=== PATIENT | female | born 1945 | race Caucasian/White ===

== ENCOUNTER → 2017-05-26 | Outpatient (CLI) | payer OTHER ==
--- NOTE | 2017-05-26 14:33 | MAMMOGRAPHY REPORT ---
BILATERAL DIGITAL SCREENING MAMMOGRAM TOMOSYNTHESIS WITH CAD: 05/26/2017 CLINICAL HISTORY: Routine screening. Patient has no complaints. TECHNIQUE: Breast tomosynthesis in addition to standard 2D mammography was performed. Current study was also evaluated with a Computer Aided Detection (CAD) system. COMPARISON: Comparison is made to exams dated: 05/21/2015 mammogram, 05/23/2016 mammogram, 4 mammogram, 05/17/2013 mammogram, 05/14/2012 mammogram, and 05/13/2011 mammogram - [facility]. BREAST COMPOSITION: The tissue of both breasts is heterogeneously dense, which may obscure small mas ses. FINDINGS: No suspicious masses, calcifications, or areas of architectural distortion are noted in ei ther breast. There has been no significant interval change compared to prior exams. IMPRESSION: ACR BI-RADS CATEGORY 1: NEGATIVE There is no mammographic evidence of malignancy. A 1 year screening mammogram is recommended. The pa tient will receive written notification of the results. Approximately 10% of breast cancers are not detected with mammography. A negative mammographic report should not delay biopsy if a clinically suggestive mass is present. Vidhi Wei M.D. ah/:05/26/2017 07:39:32 Special Programs Director: Niurka OTTO(Yamileth)(M), [facility] letter sent: Normal 1/2 BI-RADS Code: ACR BI-RADS Category 1: Negative
== END | disposition home or self-care (01) ==
LOC: C.MAMM 07:12
PROVIDERS: ATTEND Physician Assistant
DX: Z12.31 Encounter for screening mammogram for malignant neoplasm of breast (principal)

== ENCOUNTER 2025-05-23 09:05 | Inpatient (IN) ==
--- NOTE | 2025-05-23 09:10 | Emergency Department Note ---
Impression & Plan Neutropenic fever, Pancytopenia, Cough ED Provider Note NAME: JOSEPH ROMERO AGE: 80 SEX: F : 1945 ARRIVES VIA: Ambulance INFORMANT: Patient, ED PROVIDER(S): Joe Philippe MD CHIEF COMPLAINT: Outpatient referral, fever, hypoxia. MEDICAL DECISION MAKING: Patient presents due to concern for fever in the setting of cancer. Sepsis protocols initiated patient did receive IV fluids as well as empiric IV cefepime. Patient's blood work shows a white count of 2.3. Patient's absolute neutrophil count is 880. Kidney function unremarkable. Lactate normal. Urinalysis does not show evidence of obvious infection. BioFire negative. Chest x-ray does not show obvious findings. I did discuss the patient's findings with the patient as well as with the patient's son. They are comfortable with plan of care and the patient was admitted to the medicine service.of note the patient did have improvement in blood pressure with fluid administration. Patient does not have an oxygen requirement here in the department. I did speak with GEOFF Coats and the patient was admitted by Dr. Sood. Discussion w/ other healthcare providers: GEOFF Coats and Dr. Sood inpatient medicine service Prior /Outside records reviewed: None Differential diagnosis: Infection, dehydration, metabolic abnormality, hypo/hyperglycemia, electrolyte imbalance, anemia, UTI, pneumonia, thyroid dysfunction among others were considered. Diagnostics, as interpreted by me: ECG: Sinus with PACs, rate of 69, normal intervals, normal axis no ST elevations. Cardiac monitoring: An order was placed for continuous cardiac monitoring. The monitor shows a rate of 75 with sinus rhythm. Patient was placed on pulse oximetry Medical decision rules: None Imaging studies: I informally interpreted the patient's chest x-ray without obvious pneumonia with formal report to follow. HPI: Patient presents due to concern for weakness and fatigue. F patient denies any change in symptoms from yesterday. Patient still does have some congestion and dry nonproductive cough. The patient reports that she drank well up to 2 L last night and ate well. No reported vomiting or diarrhea. No falls or trauma. Report from clinic was that the patient was seen in the clinic and that this morning she could barely walk temperature of 101 with O2 sat of 92% on room air. Also noted to be 95/61 and thus was sent back to the emergency department today. PAST MEDICAL HISTORY: See Below PAST SURGICAL HISTORY: See Below SOCIAL HISTORY: See Below HOME MEDICATIONS: See Below ALLERGIES: See Below VITALS: See Below PHYSICAL EXAMINATION: GENERAL: NAD, non-toxic. Wearing glasses. EYE EXAM: Normal conjunctiva. PERRL, no anisocoria and EOM's grossly intact w/o pain. OROPHARYNX: Moist mucus membranes, grossly normal dentition. NECK: Trachea midline, no stridor. LUNGS: Clear to auscultation. Normal chest wall mechanics. HEART: NSR, no MRG. ABDOMEN: Abdomen soft, non-tender, no masses, no rebound or guarding. BACK: No CVA TTP. SKIN: No rashes and no bruising. UPPER EXTREMITIES: Upper extremities are grossly normal. LOWER EXTREMITIES: Grossly normal, no edema. NEURO EXAM: Awake and alert, follows commands, no obvious facial asymmetry, normal speech, moves all 4 extremities. 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 MV leaflet; severe MR; MR jet is eccentric and anterior directed Hypertension Surgical History History of mitral valve repair History of hysterectomy History of colonoscopy History of tooth extraction History of adenoidectomy History of tonsillectomy Family History Mother Breast cancer Social History Smoking Status: Never smoker Second Hand Exposure: No; Do You Dip or Chew Tobacco: No; Hx Alcohol Use: No Hx Substance Use: No Preferred Language: Portuguese Communication Ability: Effective Chief Deputy Sheriff Required: No Beliefs That Will Affect Care: None Current Living Situation: Family Current Living Situation Comment: lives with grandson current occupation: Retired Other Information That Helps Us Care for You: No Feels Safe at Home: Yes Safety Concerns: Feels Safe At This Time Assistive Devices: Cane Allergies Allergies Allergy/AdvReac Type Severity Reaction Status Date / Time No Known Allergies Allergy Verified 07/12/24 14:49 Home Meds Home Medications Medication Instructions Recorded Confirmed levothyroxine 100 mcg tablet 75 mcg PO QAM 10/10/22 05/23/25 acyclovir 400 mg tablet 400 mg PO BID 04/03/23 05/23/25 cefpodoxime 200 mg tablet 200 mg PO BID 04/03/23 05/23/25 lidocaine-prilocaine 2.5 %-2.5 % 2.5 applic topical DIRECTED PRN 04/03/23 05/23/25 topical cream Itching metoprolol succinate 25 mg 25 mg PO BID 04/03/23 05/23/25 tablet,extended release 24 hr ondansetron 4 mg disintegrating 4 mg PO Q6H PRN Nausea 04/03/23 05/23/25 tablet posaconazole 100 mg tablet,delayed 300 mg PO 1XD 04/03/23 05/23/25 release potassium chloride 20 mEq 20 meq PO BID 06/19/23 05/23/25 tablet,extended release spironolactone 25 mg tablet 25 mg PO DAILY 06/19/23 05/23/25 prochlorperazine maleate 10 mg 10 mg PO Q6H PRN Nausea 05/17/24 05/23/25 tablet (Compazine) ropinirole 3 mg tablet 3 mg PO HS 05/17/24 05/23/25 torsemide 10 mg tablet 10 mg PO MOWEFR 05/17/24 05/23/25 Results & Data (ED) Vital Signs Vital Signs - 24 hr 05/23/25 09:45 05/23/25 10:01 05/23/25 10:15 Pulse Rate 66 65 65 Pulse Rate [Apical] Pulse Rate from SpO2 Sensor Pulse Rhythm [Apical] Pulse Strength [Apical] Respiratory Rate 27 H 22 23 Respiratory Effort / Characteristics Respiratory Depth Respiratory Pattern Blood Pressure 118/58 L 107/50 L 105/55 L Blood Pressure [Right Arm] Blood Pressure Mean 77 66 70 Blood Pressure Mean [Right Arm] Blood Pressure Position [Right Arm] Pulse Oximetry 94 96 95 Oxygen Delivery Method Room Air Room Air Room Air 05/23/25 10:30 05/23/25 10:30 05/23/25 10:30 Pulse Rate Pulse Rate [Apical] Pulse Rate from SpO2 Sensor Pulse Rhythm [Apical] Pulse Strength [Apical] Respiratory Rate Respiratory Effort / Characteristics Respiratory Depth Respiratory Pattern Blood Pressure 102/57 L 102/57 L 102/57 L Blood Pressure [Right Arm] Blood Pressure Mean 66 66 66 Blood Pressure Mean [Right Arm] Blood Pressure Position [Right Arm] Pulse Oximetry Oxygen Delivery Method 05/23/25 10:30 05/23/25 10:42 05/23/25 10:42 Pulse Rate 65 64 Pulse Rate [Apical] 64 Pulse Rate from SpO2 Sensor 65 64 Pulse Rhythm [Apical] Regular Pulse Strength [Apical] Respiratory Rate 24 16 25 H Respiratory Effort / Characteristics Non-Labored Spontaneous Respiratory Depth Normal Respiratory Pattern Blood Pressure Blood Pressure [Right Arm] 104/55 L Blood Pressure Mean Blood Pressure Mean [Right Arm] 71 Blood Pressure Position [Right Arm] Pulse Oximetry 96 95 96 Oxygen Delivery Method Room Air 05/23/25 10:43 05/23/25 10:43 05/23/25 11:15 Pulse Rate Pulse Rate [Apical] 62 Pulse Rate from SpO2 Sensor Pulse Rhythm [Apical] Regular Pulse Strength [Apical] Normal Respiratory Rate 18 Respiratory Effort / Characteristics Non-Labored Spontaneous Respiratory Depth Normal Respiratory Pattern Regular Blood Pressure 104/55 L 104/55 L Blood Pressure [Right Arm] 92/53 L Blood Pressure Mean 70 70 Blood Pressure Mean [Right Arm] 66 Blood Pressure Position [Right Arm] Lying Pulse Oximetry 94 Oxygen Delivery Method Room Air Home Medications Current Medication List: was personally reviewed by me Laboratory Data Attestation: I reviewed the patient's lab results. 05/24/25 06:17 05/24/25 06:17 Lab Results 05/23/25 05/23/25 05/23/25 Range/Units 09:14 09:30 10:14 WBC 2.32 L (4.8-10.8) K/ul RBC 3.44 L (4.20-5.40) M/uL Hgb 8.3 L (12.0-16.0) g/dL Hct 26.4 L (37.0-47.0) % MCV 76.7 L (80.0-100.0) fL MCH 24.1 L (25.0-34.0) pg MCHC 31.4 L (32.0-36.0) g/dL RDW Std Deviation 84.5 H (36.4-46.3) fL RDW Coeff of Paulina 30.5 H (11.5-14.5) % Plt Count 25 L* (130-400) K/uL Absolute Nucleated RBC 0.03 (0.00-0.12) K/uL Nucleated RBC % (auto) 1.3 % Neutrophils % (Manual) 38 % Lymphocytes % (Manual) 19 % Monocytes % (Manual) 28 % Basophils % (Manual) 1 % Blast Cells % (Manual) 14 % Neutrophils # (Manual) 0.88 L (1.40-6.50) K/uL Total Absolute Neuts 0.88 L* (1.4-6.5) K/uL Lymphocytes # (Manual) 0.44 L (1.2-3.4) K/uL Total Abs Lymphocytes 0.44 L (1.2-3.4) K/uL Monocytes # (Manual) 0.65 H (0.11-0.59) K/uL Basophils # (Manual) 0.02 (0-0.2) K/uL Blast Cells # (Man) 0.32 H (0-0) K/uL Toxic Vacuolation 2+ Giant Platelets 1+ Polychromasia 1+ Anisocytosis Present Tear Drop Cells 1+ Ovalocytes 1+ Acanthocytes (Spur) 1+ VBG pH 7.38 (7.36-7.41) VBG pCO2 37 L (38-50) mmHg VBG pO2 28 mmHg VBG HCO3 22 mmol/L VBG O2 Saturation < 60.0 % VBG Base Excess -2.8 mEq/L Sodium 135 L (136-145) mmol/L Potassium 5.1 (3.5-5.1) mmol/L Chloride 106 (98-107) mmol/L Carbon Dioxide 24 (21-32) mmol/L Anion Gap 5 (3-11) BUN 23 (6-23) mg/dl Creatinine 1.05 (0.6-1.2) mg/dl Est Cr Clr Drug Dosing 36.3 ml/min eGFR 53.38 BUN/Creatinine Ratio 21.9 H (10-20) Glucose 120 H (70-99(Fasting)) mg/dl Lactate 1.6 (0.4-2.0) mmol/L Calcium 8.8 (8.6-10.3) mg/dl Magnesium 2.2 (1.7-2.4) mg/dl Total Bilirubin 0.9 (0.2-1.0) mg/dl Direct Bilirubin TNP TNP AST 39 (13-39) U/L ALT 33 (7-52) U/L Alkaline Phosphatase 58 (34-104) U/L Troponin I High Sens 11.2 (0-14) pg/ml Total Protein 5.9 L (6.0-8.3) gm/dl Albumin 3.5 (3.4-5.0) gm/dl Procalcitonin 0.23 (0-0.5) ng/ml Urine Color Dark Yellow Urine Appearance Clear (Clear) Urine pH 5.5 (4.5-7.5) Ur Specific [place] 1.019 (1.000-1.030) Urine Protein 1+ H (Negative) Urine Glucose (UA) Negative (Negative) Urine Ketones Negative (Negative) Urine Blood Negative (Negative) Urine Nitrite Negative (Negative) Urine Bilirubin Negative (Negative) Urine Urobilinogen Negative (Negative) Ur Leukocyte Esterase Negative (Negative) Urine WBC (Auto) 0-5 (0-5) /hpf Urine RBC (Auto) 0-2 (0-2) /hpf U Hyaline Cast (Auto) 3-5 H (0-2) /lpf U Epithel Cells (Auto) 0-2 (0-2) /hpf Urine Bacteria (Auto) None Seen (None Seen) Urine Comment Nasal Screen MRSA (PCR) Negative (Negative) Adenovirus (PCR) Not Detected (NotDetected) B. pertussis DNA (PCR) Not Detected (NotDetected) B.parapertussis DNA PCR Not Detected (NotDetected) C. pneumoniae DNA (PCR) Not Detected (NotDetected) Coronavirus OC43 (PCR) Not Detected (NotDetected) Coronavirus HKU1 (PCR) Not Detected (NotDetected) Coronavirus 229E (PCR) Not Detected (NotDetected) SARS-CoV-2 (PCR) Not Detected (NotDetected) Coronavirus NL63 (PCR) Not Detected (NotDetected) Enterobacterales (PCR) DETECTED A (NotDetected) Human Metapneumovir PCR Not Detected (NotDetected) Influenza Type A (PCR) Not Detected (NotDetected) Influenza Type B (PCR) Not Detected (NotDetected) M. pneumoniae (PCR) Not Detected (NotDetected) Parainfluenza 1 (PCR) Not Detected (NotDetected) Parainfluenza 2 (PCR) Not Detected (NotDetected) Parainfluenza 3 (PCR) Not Detected (NotDetected) Parainfluenza 4 (PCR) Not Detected (NotDetected) RSV (PCR) Not Detected (NotDetected) Entero/Rhino (PCR) Not Detected (NotDetected) blaIMP Car res Gene PCR Not Detected (NotDetected) KPC-Carbap Res Gene PCR Not Detected (NotDetected) blaNDM Car Res Gene PCR Not Detected (NotDetected) OXA-48 Carbapenem Resis Gene (PCR) Not Detected (NotDetected) blaVIM Car Res Gene PCR Not Detected (NotDetected) CTX-M Gene Resistance (PCR) Not Detected (NotDetected) Bld Cult ID Panel PCR See PCR Comment (NotDetected) 05/23/25 Range/Units 11:05 WBC (4.8-10.8) K/ul RBC (4.20-5.40) M/uL Hgb (12.0-16.0) g/dL Hct (37.0-47.0) % MCV (80.0-100.0) fL MCH (25.0-34.0) pg MCHC (32.0-36.0) g/dL RDW Std Deviation (36.4-46.3) fL RDW Coeff of Paulina (11.5-14.5) % Plt Count (130-400) K/uL Absolute Nucleated RBC (0.00-0.12) K/uL Nucleated RBC % (auto) % Neutrophils % (Manual) % Lymphocytes % (Manual) % Monocytes % (Manual) % Basophils % (Manual) % Blast Cells % (Manual) % Neutrophils # (Manual) (1.40-6.50) K/uL Total Absolute Neuts (1.4-6.5) K/uL Lymphocytes # (Manual) (1.2-3.4) K/uL Total Abs Lymphocytes (1.2-3.4) K/uL Monocytes # (Manual) (0.11-0.59) K/uL Basophils # (Manual) (0-0.2) K/uL Blast Cells # (Man) (0-0) K/uL Toxic Vacuolation Giant Platelets Polychromasia Anisocytosis Tear Drop Cells Ovalocytes Acanthocytes (Spur) VBG pH (7.36-7.41) VBG pCO2 (38-50) mmHg VBG pO2 mmHg VBG HCO3 mmol/L VBG O2 Saturation % VBG Base Excess mEq/L Sodium (136-145) mmol/L Potassium (3.5-5.1) mmol/L Chloride (98-107) mmol/L Carbon Dioxide (21-32) mmol/L Anion Gap (3-11) BUN (6-23) mg/dl Creatinine (0.6-1.2) mg/dl Est Cr Clr Drug Dosing ml/min eGFR BUN/Creatinine Ratio (10-20) Glucose (70-99(Fasting)) mg/dl Lactate (0.4-2.0) mmol/L Calcium (8.6-10.3) mg/dl Magnesium (1.7-2.4) mg/dl Total Bilirubin (0.2-1.0) mg/dl Direct Bilirubin 0.3 H AST (13-39) U/L ALT (7-52) U/L Alkaline Phosphatase (34-104) U/L Troponin I High Sens (0-14) pg/ml Total Protein (6.0-8.3) gm/dl Albumin (3.4-5.0) gm/dl Procalcitonin (0-0.5) ng/ml Urine Color Urine Appearance (Clear) Urine pH (4.5-7.5) Ur Specific [place] (1.000-1.030) Urine Protein (Negative) Urine Glucose (UA) (Negative) Urine Ketones (Negative) Urine Blood (Negative) Urine Nitrite (Negative) Urine Bilirubin (Negative) Urine Urobilinogen (Negative) Ur Leukocyte Esterase (Negative) Urine WBC (Auto) (0-5) /hpf Urine RBC (Auto) (0-2) /hpf U Hyaline Cast (Auto) (0-2) /lpf U Epithel Cells (Auto) (0-2) /hpf Urine Bacteria (Auto) (None Seen) Urine Comment Nasal Screen MRSA (PCR) (Negative) Adenovirus (PCR) (NotDetected) B. pertussis DNA (PCR) (NotDetected) B.parapertussis DNA PCR (NotDetected) C. pneumoniae DNA (PCR) (NotDetected) Coronavirus OC43 (PCR) (NotDetected) Coronavirus HKU1 (PCR) (NotDetected) Coronavirus 229E (PCR) (NotDetected) SARS-CoV-2 (PCR) (NotDetected) Coronavirus NL63 (PCR) (NotDetected) Enterobacterales (PCR) (NotDetected) Human Metapneumovir PCR (NotDetected) Influenza Type A (PCR) (NotDetected) Influenza Type B (PCR) (NotDetected) M. pneumoniae (PCR) (NotDetected) Parainfluenza 1 (PCR) (NotDetected) Parainfluenza 2 (PCR) (NotDetected) Parainfluenza 3 (PCR) (NotDetected) Parainfluenza 4 (PCR) (NotDetected) RSV (PCR) (NotDetected) Entero/Rhino (PCR) (NotDetected) blaIMP Car res Gene PCR (NotDetected) KPC-Carbap Res Gene PCR (NotDetected) blaNDM Car Res Gene PCR (NotDetected) OXA-48 Carbapenem Resis Gene (PCR) (NotDetected) blaVIM Car Res Gene PCR (NotDetected) CTX-M Gene Resistance (PCR) (NotDetected) Bld Cult ID Panel PCR (NotDetected) Administered Medications Acyclovir (Acyclovir 400 Mg Tab) 400 mg PO BID DONOVAN Stop: 06/22/25 20:59 Last Admin: 05/24/25 08:45 Dose: 400 mg Documented By: rhoda Admin: 05/23/25 20:45 Dose: 400 mg Documented By: AXEL Cefepime HCl (Maxipime 2000mg) 2,000 mg in 20 mls @ 5 mls/min IV Q12H DONOVAN; Protocol Stop: 05/25/25 20:59 Last Admin: 05/24/25 09:35 Dose: 5 mls/min Documented By: rhoda Admin: 05/23/25 20:45 Dose: 5 mls/min Documented By: AXEL Sodium Chloride (Nss) 1,000 mls @ 75 mls/hr IV .[id number] ONE Stop: 05/24/25 11:21 Last Admin: 05/23/25 22:13 Dose: 75 mls/hr Documented By: AXEL Levothyroxine Sodium (Levothyroxine Sodium 75 Mcg Tablet) 75 mcg PO DAILYBB DONOVAN Stop: 06/23/25 06:29 Last Admin: 05/24/25 05:09 Dose: 75 mcg Documented By: AXEL Metoprolol Succinate (Metoprolol Succ 25mg Ext Rel Tab) 25 mg PO BID DONOVAN Stop: 06/22/25 20:59 Last Admin: 05/24/25 08:46 Dose: 25 mg Documented By: rhoda Admin: 05/23/25 20:46 Dose: Not Given Documented By: AXEL Posaconazole (Posaconazole [address] Tab) 300 mg PO DAILY DONOVAN Stop: 06/23/25 08:59 Last Admin: 05/24/25 09:12 Dose: 300 mg Documented By: rhoda Ropinirole HCl (Ropinirole Hcl 1 Mg Tablet) 3 mg PO HS DONOVAN Stop: 06/22/25 20:59 Last Admin: 05/23/25 20:46 Dose: 3 mg Documented By: AXEL Discontinued Medications Sodium Chloride (Nss) 1,000 mls @ 999 mls/hr IV .Q1H1M DONOVAN Stop: 05/23/25 10:15 Last Infusion: 05/23/25 10:45 Dose: Infused Documented By: Admin: 05/23/25 09:38 Dose: 999 mls/hr Documented By: NEENA Cefepime HCl (Maxipime 2000mg) 2,000 mg in 20 mls @ 5 mls/min IV NOW STA; Protocol Stop: 05/23/25 09:13 Last Admin: 05/23/25 09:37 Dose: 5 mls/min Documented By: NEENA Acetaminophen (Ofirmev) 1,000 mg in 100 mls @ 400 mls/hr IV NOW STA Stop: 05/23/25 09:25 Last Infusion: 05/23/25 10:45 Dose: Infused Documented By: Admin: 05/23/25 09:38 Dose: 400 mls/hr Documented By: NEENA Sodium Chloride (Nss) 1,000 mls @ 100 mls/hr IV .Q10H DONOVAN Stop: 05/24/25 09:44 Last Infusion: 05/23/25 22:14 Dose: Infused Documented By: Admin: 05/23/25 15:31 Dose: 100 mls/hr Documented By: GUS Miscellaneous (Order Awaiting Action [(Posaconazole 100 Mg Tablet,Delayed Release (Dr/Ec)]) 1 each N/A QS DONOVAN Stop: 06/22/25 15:59 Last Admin: 05/23/25 15:37 Dose: 1 each Documented By: GUS Imaging Data Radiologist's Impression: Chest X-Ray 05/23/25 09:10 XR chest 1V portable CLINICAL HISTORY: Sepsis COMPARISON STUDY: 05/22/2025 FINDINGS: Stable cardiac valve repair. Stable right chest port. Stable cardiomegaly without pulmonary vascular congestion. No consolidation or pleural effusion seen. No pneumothorax. IMPRESSION: No acute findings. ACT 112: Negative or not required by law. Electronically signed by: Patrice Monzon M.D. 05/23/2025 9:54 AM Discharge Plan Visit Data Chief Complaint: Illness Stated Complaint: HYPOXIA, HYPOTENSION ED Provider: Joe Philippe Discharge Problem: Neutropenic fever, Pancytopenia, Cough Patient Disposition: Admitted As Inpatient Condition: Good Discharge Instructions Interventions: ED Discharge Assessment Last Done: 05/23/25 13:30 Discharge Problem: Cough Qualifiers: Cough type: acute Qualified Code(s): R05.1 - Acute cough
[2025-05-23] MEDS: CEFEPIME 2000MG 2,000 MG/20 ML SYR IV STA (09:37)
[2025-05-23] MEDS: SODIUM CHLORIDE 0.9% 1,000 ML IV SCH ×2 (09:38→15:31)
[2025-05-23] MEDS: ACETAMINOPHEN 1,000 MG/100 ML VIAL IV STA (09:38)
[2025-05-23 09:46] LABS: Hematocrit (blood only) 26.4 % (37.0-47.0); Hemoglobin 8.3 g/dL (12.0-16.0); Mean Corpuscular Hemoglobin 24.1 pg (25.0-34.0); Mean Corpuscular Volume 76.7 fL (80.0-100.0); Platelet Count 25 K/uL (130-400); RDW Standard Deviation 84.5 fL (36.4-46.3); Red Blood Count 3.44 M/uL (4.20-5.40); White Blood Count 2.32 K/ul (4.8-10.8)
--- NOTE | 2025-05-23 09:55 | XRay Report ---
XR chest 1V portable CLINICAL HISTORY: Sepsis COMPARISON STUDY: 05/22/2025 FINDINGS: Stable cardiac valve repair. Stable right chest port. Stable cardiomegaly without pulmonary vascular congestion. No consolidation or pleural effusion seen. No pneumothorax. IMPRESSION: No acute findings. ACT 112: Negative or not required by law. Electronically signed by: Patrice Monzon M.D. 05/23/2025 9:54 AM
[2025-05-23 09:56] LABS: Appearance Urine Clear (Clear); Bacteria Urine Automated None Seen (None Seen); Epithelial Cell Urine Auto 0-2 /hpf (0-2); Glucose Urine UA Negative (Negative); RBC Urine Automated 0-2 /hpf (0-2); WBC Urine Automated 0-5 /hpf (0-5)
[2025-05-23 10:03] LABS: Alanine Aminotransferase 33 U/L (7-52); Albumin Level 3.5 gm/dl (3.4-5.0); Alkaline Phosphatase 58 U/L (34-104); Anion Gap 5 (3-11); Bilirubin,Total 0.9 mg/dl (0.2-1.0); Blood Urea Nitrogen 23 mg/dl (6-23); Calcium 8.8 mg/dl (8.6-10.3); Carbon Dioxide 24 mmol/L (21-32); Chloride 106 mmol/L (98-107); Creatinine Clr Calc Pharmacy 36.3 ml/min; Glucose 120 mg/dl (70-99(Fasting)); Magnesium 2.2 mg/dl (1.7-2.4); Potassium 5.1 mmol/L (3.5-5.1); Sodium 135 mmol/L (136-145); Total Protein 5.9 gm/dl (6.0-8.3)
[2025-05-23 10:20] LABS: Base Excess VBG -2.8 mEq/L; HCO3 VBG 22 mmol/L; Oxygen Saturation VBG < 60.0 %; PCO2 VBG 37 mmHg (38-50); PO2 VBG 28 mmHg; pH VBG 7.38 (7.36-7.41)
--- NOTE | 2025-05-23 10:38 | History & Physical Report ---
Date of Service May 23, 2025 Assessment & Plan (1) Neutropenic fever: (2) Pancytopenia: (3) Acute myeloid leukemia: (4) Chronic diastolic heart failure: (5) Atrial fibrillation: (6) History of mitral valve repair: (7) Restless leg syndrome: (8) Hypothyroidism: Plan 80 year old female with PMH significant for hypothyroidism, dyslipidemia, hypertension, atrial fibrillation, nonobstructive CAD, chronic diastolic CHF, vitamin B12 deficiency, CKD IIIa, RLS, history of mitral valve prolapse s/p MVR (2022), acute myeloid leukemia, myelodysplastic syndrome, and pancytopenia who presents to the ED on 05/23/2025 as a referral from the office of Dr. Barnett with [facility]. Patient was seen in the ED yesterday for weakness, cough, congestion, and hallucinations. Symptoms improved after IV fluid administration and patient was discharged with plan for close follow up with Dr. Barnett today. At her appointment today, patient was febrile to 38.5 with O2 sat of 82% on room air and BP 95/61 and was therefore referred to the ED for evaluation. Neutropenic fever Pancytopenia Patient presenting from office of Dr. Barnett with fever 38.5, O2 sat 82% on room air, BP 95/61 In the ED, patient was afebrile, O2 sat 93% on room air, normotensive initially Labs revealed pancytopenia with WBC 2.32, RBC 3.44, Plt 25 ANC 0.88 indicating moderate neutropenia Biofire negative, CXR negative, UA unremarkable, negative lactate and procalcitonin Plan: Follow blood cultures from yesterday and today Continue IV cefepime started in ED Neutropenic precautions Monitor H&H q12hr and transfuse if Hgb <7.0 or symptomatic Supportive care for fever and dry cough including tylenol and tessalon perles PRN ID consult for neutropenic fever in setting of suppressive therapy and no recent chemo Hypotension BPs as low as 84/56 but mostly 100s/50s Received 1L NSS in ED Continue MIVF at 100mL/hr x 2L Consider midodrine or albumin if no improvement in BP AML MDS Following with Dr. Barnett of [facility] Last treatment in November 2024 Planned azacitidine for 3 days every 28 days but unable to continue due to significant neutropenia and thrombocytopenia On suppressive therapy including acyclovir, cefpodoxime (hold while on IV cefepime), posaconazole Chronic diastolic CHF Follows with [facility] Patient appears euvolemic TTE in January 2025 revealed EF 55-59%, severely enlarged LA, mod aortic valve sclerosis, mild aortic valve regurg, mod MR, mod to severe TR, mod pulm HTN Hold torsemide (and KCl) and spironolactone due to low BPs Monitor I&Os and daily weights Atrial fibrillation Developed post op after MVR Not on anticoagulation due to anemia Continue metoprolol CKD Creat at baseline ~1.0 Avoid nephrotoxic agents as able Monitor renal function Hypothyroidism Continue levothyroxine RLS Continue ropinirole DVT Prophylaxis: TEDs/SCDs due to anemia Code Status: FULL CODE - As per discussion at bedside with the patient. PCP: Stefanie Gore PA-C Disposition: admit to med surg Patient seen in collaboration with Dr. Sood. Please see addendum. I spent a total of 70 minutes coordinating, documenting and providing care for this patient excluding time spent in the performance of separately billed servic es or time spent by another provider/QHP. Admission and Anticipated Discharge Date Admission Date: May 23, 2025 History of Present Illness Chief Complaint: fever Primary Care Provider: Michelle Quinones PA-C 80 year old female with PMH significant for hypothyroidism, dyslipidemia, hypertension, atrial fibrillation, nonobstructive CAD, chronic diastolic CHF, vi tamin B12 deficiency, CKD IIIa, RLS, history of mitral valve prolapse s/p MVR (2022), acute myeloid leukemia, myelodysplastic syndrome, and pancytopenia who presents to the ED on 05/23/2025 as a referral from the office of Dr. Barnett with [facility]. Patient was seen in the ED yesterday for weakness, cough, congestion, and hallucinations. Symptoms improved after IV fluid administration and patient was discharged with plan for close follow up with Dr. Barnett today. At her appointment today, patient was febrile to 38.5 with O2 sat of 82% on room air and BP 95/61 and was therefore referred to the ED for evaluation. History obtained from patient and her son. Her son reports that she has been "off balance" since yesterday and when he met her at her appointment today, he immediately felt she needed a wheelchair and was not safe to walk. Patient did not have any falls. Patient reports she feels weak and has a persistent dry cough that has been present for weeks. Otherwise no acute complaints. Denies dizziness, chest pain, SOB, abdominal pain, N/V/D, dysuria, hematuria, hematochezia. Allergies Allergy/AdvReac Type Severity Reaction Status Date / Time No Known Allergies Allergy Verified 07/12/24 14:49 Home Medications Medication Instructions Recorded Confirmed Type levothyroxine 100 mcg tablet 75 mcg PO QAM 10/10/22 05/23/25 History acyclovir 400 mg tablet 400 mg PO BID 04/03/23 05/23/25 History cefpodoxime 200 mg tablet 200 mg PO BID 04/03/23 05/23/25 History lidocaine-prilocaine 2.5 %-2.5 % 2.5 applic topical DIRECTED PRN 04/03/23 05/23/25 History topical cream Itching metoprolol succinate 25 mg 25 mg PO BID 04/03/23 05/23/25 History tablet,extended release 24 hr ondansetron 4 mg disintegrating 4 mg PO Q6H PRN Nausea 04/03/23 05/23/25 History tablet posaconazole 100 mg tablet,delayed 300 mg PO 1XD 04/03/23 05/23/25 History release potassium chloride 20 mEq 20 meq PO BID 06/19/23 05/23/25 History tablet,extended release spironolactone 25 mg tablet 25 mg PO DAILY 06/19/23 05/23/25 History prochlorperazine maleate 10 mg 10 mg PO Q6H PRN Nausea 05/17/24 05/23/25 History tablet (Compazine) ropinirole 3 mg tablet 3 mg PO HS 05/17/24 05/23/25 History torsemide 10 mg tablet 10 mg PO MOWEFR 05/17/24 05/23/25 History Past Med/Surg History Problem List (Updated 05/23/25 @ 11:14 by GEOFF Aguilar) Acute myeloid leukemia Pancytopenia Neutropenic fever Nasal congestion (Acute) Cough (Acute) Neutropenia (Acute) Encounter for pre-operative examination Medical History (Updated 05/23/25 @ 11:14 by GEOFF Aguilar) Restless leg syndrome Atrial fibrillation Chronic diastolic heart failure CKD (chronic kidney disease) Pulmonary hypertension PASP 70mmHg on 09/2022 TTE Hypothyroidism Migraine ocular Valvular heart disease Reason for upcoming NEY per pt TTE 09/25/22- showed severe MVP with appearance of flail posterior MV leaflet; severe MR; MR jet is eccentric and anterior directed Hypertension Surgical History (Updated 05/23/25 @ 11:14 by GEOFF Aguilar) History of mitral valve repair History of hysterectomy History of colonoscopy History of tooth extraction History of adenoidectomy History of tonsillectomy Family History Mother Breast cancer Social History Smoking Status: Never smoker Second Hand Exposure: No; Do You Dip or Chew Tobacco: No; Hx Alcohol Use: No Hx Substance Use: No Preferred Language: Irish Communication Ability: Effective E Commerce Marketing Analyst Required: No Beliefs That Will Affect Care: None Current Living Situation: Family Current Living Situation Comment: lives with grandson current occupation: Retired Feels Safe at Home: Yes Assistive Devices: Glasses Review of Systems Review of Systems: All systems reviewed & are unremarkable except as noted in HPI & below Physical Exam Physical Exam: General/Psych: ill appearing, sitting up in bed, NAD, drowsy Head: normocephalic, atraumatic Eyes: normal inspection, PERRL, conjunctivae pink, anicteric sclerae ENT: external ear and nose normal, oropharynx normal Neck: normal visual inspection, trachea midline Respiratory: normal respiratory effort, lungs clear to auscultation, no wheeze/rales/rhonchi, no accessory muscle use Cardiovascular: regular rate and rhythm, +murmur/rub/gallop Extremities: no cyanosis or clubbing, normal peripheral pulses, no BLE edema Abdomen/GI: normal bowel sounds, soft, nontender Neurologic/MSK: A+Ox3, motor strength 5/5, moves all extremities Skin: no rashes, normal color, warm and dry Results & Data Results & Data Vital Signs (Past 12 Hours) Vital Signs Temp Pulse Resp BP Pulse Ox O2 Del Method 05/23/25 10:15 65 23 105/55 L 95 Room Air 05/23/25 10:01 65 22 107/50 L 96 Room Air 05/23/25 09:45 66 27 H 118/58 L 94 Room Air 05/23/25 09:30 67 18 115/58 L 94 Room Air 05/23/25 09:14 93 Room Air 05/23/25 09:14 37.5 C 66 22 127/66 93 Room Air 05/23/25 09:13 67 Laboratory Results Short CBC 05/23/25 Range/Units 09:14 WBC 2.32 L (4.8-10.8) K/ul Hgb 8.3 L (12.0-16.0) g/dL Hct 26.4 L (37.0-47.0) % Plt Count 25 L* (130-400) K/uL BMP 05/23/25 09:14 Sodium 135 L Potassium 5.1 Chloride 106 Carbon Dioxide 24 BUN 23 Creatinine 1.05 Glucose 120 H Calcium 8.8 Liver Function 05/23/25 Range/Units 09:14 Total Bilirubin 0.9 (0.2-1.0) mg/dl Direct Bilirubin TNP AST 39 (13-39) U/L ALT 33 (7-52) U/L Alkaline Phosphatase 58 (34-104) U/L Albumin 3.5 (3.4-5.0) gm/dl Urine 05/23/25 Range/Units 09:30 Urine Color Dark Yellow Urine Appearance Clear (Clear) Urine pH 5.5 (4.5-7.5) Ur Specific [place] 1.019 (1.000-1.030) Urine Protein 1+ H (Negative) Urine Glucose (UA) Negative (Negative) I have independently reviewed and interpreted patient's admitting labs including CBC, CMP, VBG, mag, troponin, lactate, procalcitonin, UA Diagnostic Findings Chest X-Ray 05/23/25 09:10 XR chest 1V portable CLINICAL HISTORY: Sepsis COMPARISON STUDY: 05/22/2025 FINDINGS: Stable cardiac valve repair. Stable right chest port. Stable cardiomegaly without pulmonary vascular congestion. No consolidation or pleural effusion seen. No pneumothorax. IMPRESSION: No acute findings. ACT 112: Negative or not required by law. Electronically signed by: Patrice Monzon M.D. 05/23/2025 9:54 AM ECG Additional Comments: I have independently reviewed and interpreted patient's admitting EKG which revealed: NSR with PACs at a rate of 69bpm Code Status & VTE Plan Code Status Full Code Supervising Physician Co-Signing Physician Notes 80 yo F w/ PMH of hypothyroidism, dyslipidemia, hypertension, atrial fibrillation, nonobstructive CAD, chronic diastolic CHF, vitamin B12 deficiency, CKD IIIa, RLS, history of mitral valve prolapse s/p MVR (2022), acute myeloid leukemia, myelodysplastic syndrome, and pancytopenia presents to the ED at referral of oncology office. Pt was at her oncology office today and noted to have weakness, cough, and hallucinations w/ abnormal vitals - febrile (38.5C), hypoxic (82% on RA) w/ soft BP and hence sent to ED. Labs reviewed, pancytopenia noted - WBC 2.32, Hb 8.3, Plt 25K, ANC 0.88K; VBG fairly ok, renal fxn fairly wnl, LFT and procal fairly wnl. UA neg for UTI, MRSA screen neg, RPR neg. CXR w/ no acute findings. Moderate neutropenia/neutropenic fever: Pt started on cefepime in ed, c/w same. s/p 1L IVF, still w/ soft BP. c/w NSS at 100 ml/hr x 2 bag. consider midodrine and iv albumin if BP doesn't improve. cbc w/ diff in AM. Neutropenic precautions. Follow admitting blood culture. consider ID consult given pt on suppressive therapy at home/still developed fever and no source could be identified. pt denies headache or dizziness. Monitor HnH Twice a day, platelet bid. transfuse prbc for Hb <7 or for symptomatic anemia; transfuse platelet for Plt <10 K or <50K w/ bleeding. Blood transfusion consent obtained. On exam: GENERAL: Alert and oriented x3. NAD, on RA. appears weak, ill HEENT: No pallor, no icterus. Pupils equal, round and reactive to light. Oral mucosa moist. NECK: No JVD, no neck masses. HEART: S1 and S2 heard. Regular rate and rhythm. No murmur, no gallop. RESPIRATORY SYSTEM: Normal AP diameter. No accessory muscle use. No wheezing, no crackles. ABDOMEN: Soft, bowel sounds present, nontender, no distention. CENTRAL NERVOUS SYSTEM: No facial droop. Speech is clear. Obeys simple commands. Moves extremities. EXTREMITIES: No edema, no erythema seen. BP during bedside exam: 109/58. Total time spent independently: 30 minutes. I have seen and examined the patient and have discussed the case with the provider above. I agree with the assessment and plan as stated.
[2025-05-23 10:41] LABS: Chlamydia pneumoniae PCR Not Detected (NotDetected); Coronavirus 229E PCR Not Detected (NotDetected); Coronavirus CoV-2 (COVID19)PCR Not Detected (NotDetected); Coronavirus HKU1 PCR Not Detected (NotDetected); Coronavirus NL63 PCR Not Detected (NotDetected); Coronavirus OC43PCR Not Detected (NotDetected); Human Metapneumovirus PCR Not Detected (NotDetected); Parainfluenza Virus 1 PCR Not Detected (NotDetected); Parainfluenza Virus 2 PCR Not Detected (NotDetected); Parainfluenza Virus 3 PCR Not Detected (NotDetected); Parainfluenza Virus 4 PCR Not Detected (NotDetected); Respiratory Syncytial VirusPCR Not Detected (NotDetected); Rhinovirus/Enterovirus PCR Not Detected (NotDetected)
[2025-05-23 10:45] LABS: ALC (manual) 0.44 K/uL (1.2-3.4); ANC (manual) 0.88 K/uL (1.4-6.5); Acanthocytes 1+; Anisocytosis Present; Blast # (manual) 0.32 K/uL (0-0); Giant Platelets 1+; Ovalocytes 1+; Polychromasia 1+; Tear Drop Cells 1+; Toxic Vacuolation 2+
[2025-05-23] MEDS ORDERED: BENZONATATE 100 MG CAPSULE PO PRN (13:55)
[2025-05-23] MEDS ORDERED: PROCHLORPERAZINE MALEATE 10 MG TAB PO PRN (13:55)
[2025-05-23] MEDS ORDERED: ONDANSETRON INJ 2 MG/ML 2 ML VIAL IV PRN (13:55)
[2025-05-23] MEDS: CEFEPIME 2000MG 2,000 MG/20 ML SYR IV SCH (20:45)
[2025-05-23] MEDS: ACYCLOVIR 400 MG TAB PO SCH (20:45)
[2025-05-23] MEDS: METOPROLOL SUCC 25MG EXT REL TAB PO SCH (20:46)
[2025-05-23 21:44] LABS: Hematocrit (blood only) 23.6 % (37.0-47.0); Hemoglobin 7.2 g/dL (12.0-16.0)
--- NOTE | 2025-05-23 21:56 | Communication Note ---
Date of Service: May 23, 2025 Notified by RN of hemoglobin drop of 7.2 from 8.3 from admission in a.m. No overt bleeding as per RN. AP Progressive anemia Recheck H&H after 3 hours Transfuse PRBC to maintain hemoglobin of at least 8, history CAD as per records.
[2025-05-23] MEDS: SODIUM CHLORIDE 0.9% 1,000 ML IV ONE (22:13)
[2025-05-24 00:34] LABS: Hematocrit (blood only) 23.3 % (37.0-47.0); Hemoglobin 7.3 g/dL (12.0-16.0)
[2025-05-24] MEDS ORDERED: SODIUM CHLORIDE 0.9% 100 ML IV PRN (00:43)
[2025-05-24 01:05] LABS: A calco-baum cmplx NotReported Not Detected (NotDetected); Bact fragilis Not Reported Not Detected (NotDetected); Blood Culture Id Panel See PCR Comment (NotDetected); C auris Not Reported Not Detected (NotDetected); CTX-M Resistant Gene Not Detected (NotDetected); Calbicans Not Reported Not Detected (NotDetected); Candida glabrata Not Reported Not Detected (NotDetected); Candida krusei Not Reported Not Detected (NotDetected); Cneoformans/gatti Not Reported Not Detected (NotDetected); Cparapsilosis Not Reported Not Detected (NotDetected); Ctropicalis Not Reported Not Detected (NotDetected); E cloacae compx Not Reported Not Detected (NotDetected); Efaecalis Not Reported Not Detected (NotDetected); Efaecium Not Reported Not Detected (NotDetected); Enterobacterales Not Reported DETECTED (NotDetected); Escherichia coli Not Reported Not Detected (NotDetected); H influenzae Not Reported Not Detected (NotDetected); IMP Resistant Gene Not Detected (NotDetected); K aerogenes Not Reported Not Detected (NotDetected); KPC Resistant Gene Not Detected (NotDetected); Koxytoca Not Reported Not Detected (NotDetected); Kpneumoniae grp Not Reported Not Detected (NotDetected); Lmonocyt Not Reported Not Detected (NotDetected); N meningitidis Not Reported Not Detected (NotDetected); NDM Resistant Gene Not Detected (NotDetected); OXA 48 Like Resistant Gene Not Detected (NotDetected); P aeruginosa Not Reported Not Detected (NotDetected); Proteus spp Not Reported Not Detected (NotDetected); Salmonella spp Not Reported Not Detected (NotDetected); Staph lugdunensis Not Reported Not Detected (NotDetected); Staph spp. Not Reported Not Detected (NotDetected); Staphaureus Not Reported Not Detected (NotDetected); Staphepi Not Reported Not Detected (NotDetected); Stenmaltophilia Not Reported Not Detected (NotDetected); Strep agal(GrpB) Not Reported Not Detected (NotDetected); Strep pneum Not Reported Not Detected (NotDetected); Strep pyog (GrpA) Not Reported Not Detected (NotDetected); Strep spp Not Reported Not Detected (NotDetected); VIM Resistant Gene Not Detected (NotDetected)
[2025-05-24 01:10] LABS: Enterobacterales DETECTED (NotDetected)
[2025-05-24] MEDS: LEVOTHYROXINE SODIUM 75 MCG TABLET PO SCH (05:09)
--- NOTE | 2025-05-24 06:25 | Electrocardiogram Report ---
Test Reason : Blood Pressure : */* mmHG Vent. Rate : 69 BPM Atrial Rate : 69 BPM P-R Int : 146 ms QRS Dur : 70 ms QT Int : 362 ms P-R-T Axes : 69 -5 42 degrees QTcB Int : 387 ms Sinus rhythm with Premature atrial complexes Low voltage QRS Cannot rule out Anteroseptal infarct , age undetermined Abnormal ECG No previous ECGs available Confirmed by Koffi Chaidez ([id number]) on 05/24/2025 6:25:02 AM Referred By: Confirmed By: Koffi Chaidez
[2025-05-24 06:44] LABS: Hematocrit (blood only) 28.0 % (37.0-47.0); Hemoglobin 9.1 g/dL (12.0-16.0); Mean Corpuscular Hemoglobin 25.2 pg (25.0-34.0); Mean Corpuscular Volume 77.6 fL (80.0-100.0); Platelet Count 21 K/uL (130-400); RDW Standard Deviation 74.9 fL (36.4-46.3); Red Blood Count 3.61 M/uL (4.20-5.40); White Blood Count 1.96 K/ul (4.8-10.8)
[2025-05-24 06:54] LABS: Anion Gap 8.0 (3-11); Blood Urea Nitrogen 16.0 mg/dl (6-23); Calcium 8.2 mg/dl (8.6-10.3); Carbon Dioxide 21.0 mmol/L (21-32); Chloride 107.0 mmol/L (98-107); Creatinine Clr Calc Pharmacy 47.0 ml/min; Glucose 92.0 mg/dl (70-99(Fasting)); Potassium 4.6 mmol/L (3.5-5.1); Sodium 136.0 mmol/L (136-145)
[2025-05-24 07:30] LABS: ALC (manual) 0.96 K/uL (1.2-3.4); ANC (manual) 0.47 K/uL (1.4-6.5); Acanthocytes 2+; Anisocytosis Present; Blast # (manual) 0.27 K/uL (0-0); Giant Platelets 2+; Polychromasia 1+; Tear Drop Cells 1+; Toxic Granulation 1+
[2025-05-24 09:32] LABS: A calco-baum cmplx NotReported Not Detected (NotDetected); Bact fragilis Not Reported Not Detected (NotDetected); Blood Culture Id Panel See PCR Comment (NotDetected); C auris Not Reported Not Detected (NotDetected); Calbicans Not Reported Not Detected (NotDetected); Candida glabrata Not Reported Not Detected (NotDetected); Candida krusei Not Reported Not Detected (NotDetected); Cneoformans/gatti Not Reported Not Detected (NotDetected); Cparapsilosis Not Reported Not Detected (NotDetected); Ctropicalis Not Reported Not Detected (NotDetected); E cloacae compx Not Reported Not Detected (NotDetected); Efaecalis Not Reported Not Detected (NotDetected); Efaecium Not Reported Not Detected (NotDetected); Enterobacterales Not Reported Not Detected (NotDetected); Escherichia coli Not Reported Not Detected (NotDetected); H influenzae Not Reported Not Detected (NotDetected); K aerogenes Not Reported Not Detected (NotDetected); Koxytoca Not Reported Not Detected (NotDetected); Kpneumoniae grp Not Reported Not Detected (NotDetected); Lmonocyt Not Reported Not Detected (NotDetected); N meningitidis Not Reported Not Detected (NotDetected); P aeruginosa Not Reported Not Detected (NotDetected); Proteus spp Not Reported Not Detected (NotDetected); Salmonella spp Not Reported Not Detected (NotDetected); Staph lugdunensis Not Reported Not Detected (NotDetected); Staph spp. Not Reported DETECTED (NotDetected); Staphaureus Not Reported Not Detected (NotDetected); Staphepi Not Reported DETECTED (NotDetected); Stenmaltophilia Not Reported Not Detected (NotDetected); Strep agal(GrpB) Not Reported Not Detected (NotDetected); Strep pneum Not Reported Not Detected (NotDetected); Strep pyog (GrpA) Not Reported Not Detected (NotDetected); Strep spp Not Reported Not Detected (NotDetected)
[2025-05-24 09:54] LABS: Staphylococcus epidermidis DETECTED (NotDetected); Staphylococcus spp. DETECTED (NotDetected); mecAC Resistant Gene DETECTED (NotDetected)
[2025-05-24] MEDS: ACETAMINOPHEN 325 MG TAB PO PRN (10:26)
[2025-05-24] MEDS ORDERED: VANCOMYCIN CONSULT ACTIVE PRN ×2 (11:11→11:13)
[2025-05-24] MEDS ORDERED: VANCOMYCIN HCL 1,250 MG in SODIUM CHLORIDE 0.9% 500 ML IV ONE (11:13)
[2025-05-24] MEDS: VANCOMYCIN HCL 1,250 MG in SODIUM CHLORIDE 0.9% 250 ML IV STA (11:48)
--- NOTE | 2025-05-24 12:28 | Hospitalist Progress Note ---
Date of Service May 24, 2025 Assessment & Plan (1) Neutropenic fever: (2) Pancytopenia: (3) Acute myeloid leukemia: (4) Chronic diastolic heart failure: (5) Atrial fibrillation: (6) History of mitral valve repair: (7) Restless leg syndrome: (8) Hypothyroidism: Plan 80 year old female with PMH significant for hypothyroidism, dyslipidemia, hypertension, atrial fibrillation, nonobstructive CAD, chronic diastolic CHF, vitamin B12 deficiency, CKD IIIa, RLS, history of mitral valve prolapse s/p MVR (2022), acute myeloid leukemia, myelodysplastic syndrome, and pancytopenia who presents to the ED on 05/23/2025 as a referral from the office of Dr. Barnett with [facility]. Patient was seen in the ED on 05/22/25 for weakness, cough, congestion, and hallucinations. Symptoms improved after IV fluid administration and patient was discharged with plan for close follow up with Dr. Barnett. At her appointment, patient was febrile to 38.5 with O2 sat of 82% on room air and BP 95/61 and was therefore referred to the ED for evaluation. Sepsis Neutropenic fever Pancytopenia Patient presenting from office of Dr. Barnett with fever 38.5, O2 sat 82% on room air, BP 95/61 In the ED, patient was afebrile, O2 sat 93% on room air, normotensive initially Labs revealed pancytopenia with WBC 2.32, RBC 3.44, Plt 25 Biofire negative, CXR negative, UA unremarkable, negative lactate and procalcitonin Blood culture from 05/23/25 growing Pantoea septica and GPC in clusters Continue IV cefepime IV Vanc added empirically Will follow up Blood cultures speciation and sensitivities Will follow up ID recs Neutropenic precautions Supportive care for fever and dry cough including tylenol and tessalon perles PRN S/p 1 PRBC overnight. Hb is 9.1 this AM. Will monitor Hypotension BPs as low as 84/56 but mostly 100s/50s S/p IVF BP improved and stable AML MDS Following with Dr. Barnett of [facility] Last treatment in November 2024 Planned azacitidine for 3 days every 28 days but unable to continue due to significant neutropenia and thrombocytopenia On suppressive therapy including acyclovir, cefpodoxime (hold while on IV cefepime), posaconazole Chronic diastolic CHF Follows with [facility] Patient appears euvolemic TTE in January 2025 revealed EF 55-59%, severely enlarged LA, mod aortic valve sclerosis, mild aortic valve regurg, mod MR, mod to severe TR, mod pulm HTN Continue to hold torsemide (and KCl) and spironolactone due to low BPs Monitor I&Os and daily weights Atrial fibrillation Developed post op after MVR Not on anticoagulation due to anemia Continue metoprolol CKD Creat at baseline ~1.0 Avoid nephrotoxic agents as able Monitor renal function Hypothyroidism Continue levothyroxine RLS Continue ropinirole DVT Prophylaxis: TEDs/SCDs due to anemia Code Status: FULL CODE Updated son and grandson at bedside I spent a total of 50 minutes coordinating, documenting and providing care for this patient excluding time spent in performance of separately billed services Admission and Anticipated Discharge Date Admission Date: May 23, 2025 Subjective Patient seen and examined Reports feeling better today Reports chronic mild cough, unchanged Having fevers this AM No other complains Physical Exam Constitutional: + well hydrated; no acute distress Eyes: PERRL, conjunctivae normal, anicteric sclerae ENMT: external ear and nose normal, oropharynx normal Respiratory: normal respiratory effort, lungs clear to auscultation Cardiovascular: Rate/Rhythm: regular rate and regular rhythm Gastrointestinal (Abdomen): normal bowel sounds, soft, nontender, no hepatosplenomegaly Musculoskeletal: No pedal edema Neurologic: PERRL, EOMI, accommodation nl, no face palsy, no dysarthria Psychiatric: A+Ox3, euthymic affect Results & Data Results & Data Vital Signs (Past 12 Hours) Vital Signs Temp Pulse Pulse Resp BP BP Pulse Ox 05/24/25 11:55 37 C 05/24/25 10:24 38.5 C H 05/24/25 07:35 05/24/25 07:08 36.8 C 71 14 124/68 96 05/24/25 05:00 36.8 C 70 18 125/71 97 05/24/25 04:05 36.9 C 65 18 127/66 96 05/24/25 03:11 37 C 65 16 134/72 98 05/24/25 02:36 36.6 C 65 18 131/71 96 05/24/25 02:07 36.6 C 66 18 132/80 97 05/24/25 01:52 36.8 C 64 18 123/67 96 05/24/25 01:34 36.6 C 67 18 124/76 99 O2 Del Method 05/24/25 11:55 05/24/25 10:24 05/24/25 07:35 Room Air 05/24/25 07:08 Room Air 05/24/25 05:00 05/24/25 04:05 05/24/25 03:11 05/24/25 02:36 05/24/25 02:07 05/24/25 01:52 05/24/25 01:34 Laboratory Results Abnormal lab results 05/23/25 05/23/25 05/24/25 Range/Units 09:14 21:24 00:10 WBC (4.8-10.8) K/ul RBC (4.20-5.40) M/uL Hgb 7.2 L 7.3 L (12.0-16.0) g/dL Hct 23.6 L 23.3 L (37.0-47.0) % MCV (80.0-100.0) fL RDW Std Deviation (36.4-46.3) fL RDW Coeff of Paulina (11.5-14.5) % Plt Count (130-400) K/uL Neutrophils # (Manual) (1.40-6.50) K/uL Total Absolute Neuts (1.4-6.5) K/uL Lymphocytes # (Manual) (1.2-3.4) K/uL Total Abs Lymphocytes (1.2-3.4) K/uL Blast Cells # (Man) (0-0) K/uL Calcium (8.6-10.3) mg/dl Enterobacterales (PCR) DETECTED A (NotDetected) Staphylococcus sp PCR DETECTED A (NotDetected) mecA/C-Methicil Resis Gene DETECTED A (NotDetected) Staph epidermidis (PCR) DETECTED A (NotDetected) Crossmatch See Detail 05/24/25 Range/Units 06:17 WBC 1.96 L (4.8-10.8) K/ul RBC 3.61 L (4.20-5.40) M/uL Hgb 9.1 L (12.0-16.0) g/dL Hct 28.0 L (37.0-47.0) % MCV 77.6 L (80.0-100.0) fL RDW Std Deviation 74.9 H (36.4-46.3) fL RDW Coeff of Paulina 27.1 H (11.5-14.5) % Plt Count 21 L* (130-400) K/uL Neutrophils # (Manual) 0.47 L (1.40-6.50) K/uL Total Absolute Neuts 0.47 L* (1.4-6.5) K/uL Lymphocytes # (Manual) 0.96 L (1.2-3.4) K/uL Total Abs Lymphocytes 0.96 L (1.2-3.4) K/uL Blast Cells # (Man) 0.27 H (0-0) K/uL Calcium 8.2 L (8.6-10.3) mg/dl Enterobacterales (PCR) (NotDetected) Staphylococcus sp PCR (NotDetected) mecA/C-Methicil Resis Gene (NotDetected) Staph epidermidis (PCR) (NotDetected) Crossmatch
--- NOTE | 2025-05-24 12:48 | Pharmacy Report ---
Pharmacy PK ABX Note - Date of Service May 24, 2025 - Assessment and Plan Assessment 80 year old F receiving empiric vancomycin and cefepime for treatment of possible bacteremia/febrile neutropenia w/ unclear source. Pertinent PMH includes AML, MDS, and CKD stage 3. Pertinent microbiologic data includes: negative MRSA Nasal Swab, blood culture 1 of 2 growing gram positive cocci in clusters (MRSE per Biofire) and gram- negative bacilli (Enterobacterales per Biofire). Cefepime appropriate for gram-negative organism based on Biofire results. Gram- positive organism likely represents contamination, but reasonable to continue empirically given fever today of 38.5 C. ID consulted. Day # 1 of vancomycin therapy. Plan Vancomycin * Loading dose: 1250 mg IV x 1 * Maintenance dose: 1000 mg IV every 18 hours * Regimen is predicted to achieve target AUC/KYLEE of 400-600 mg/L.hr * Will order vanco level if therapy is extended beyond 48 hours Cefepime 2 g IV q12h - dosed appropriately for indication/renal function Pharmacy will continue to follow and will adjust dose/frequency as necessary. Thank you. Pharmacy has transitioned to AUC monitoring for vancomycin. AUC/KYLEE is the preferred PK/PD target and is associated with decreased risk of nephrotoxicity compared to traditional trough targets.
--- NOTE | 2025-05-24 15:39 | Infectious Disease Consult ---
Date of Service May 24, 2025 Telehealth Information I performed this visit using a real-time telehealth connection between my location and the patients location ([facility]). After connecting through interactive tele-video, patient was identified by name and date of and/or wristband check.Patient (or authorized healthcare customer development representative) was informed that this was a telemedicine visit and it was being conducted confidentially over secure lines. My office door was closed and no one else was present in the room with me.Patient (or authorized healthcare customer development representative) provided consent to proceed with the visit, expressed an understanding of privacy and security of the telemedicine visit, and gave permission to have a hospital customer development representative in the room in order to assist with the visit and to conduct portions of the visit, as needed. I informed the patient (or authorized healthcare customer development representative) that I reviewed their record and presented the opportunity for them to ask any questions regarding the visit today. The patient agreed to participate. Assessment & Plan (1) Neutropenic fever: (2) Gram-negative bacteremia: (3) Staphylococcus epidermidis bacteremia: (4) Pancytopenia: (5) Acute myeloid leukemia: Plan In her case, I would be concerned about IV port associated bloodstream infection. I agree with IV cefepime and I would recommend adding IV vancomycin for now. Please send for 2 sets of blood culture tomorrow morning. Continue on prophylaxis with oral posaconazole and acyclovir. History of Present Illness History of Present Illness Ms. Hill he is an 80-year-old woman with past medical history of MDS/acute myeloid leukemia, hypertension, dyslipidemia, hypothyroidism, chronic diastolic heart failure, atrial fibrillation, CKD stage 3 and mitral valve prolapse status post repair in 2022 who was admitted to [facility] on 05/23/2025 after being found febrile at 38.5 during a routine visit to her medical case manager. Per patient report, she has not had any recent acute symptoms but does have chronic cough. On presentation, she was afebrile, pulse rate of 66, respiratory rate of 22, blood pressure 127/66 and saturating 93% at room air. Initial workup showed pancytopenia (ANC 0.59) which is chronic, creatinine of 1.2 (around baseline), negative RVP panel, and shortly after admission, 1 of 4 bottles of blood culture came back positive for Enterobacterales and another 1 of 4 bottles of blood culture was positive for Staph epidermidis via PCR. ID team was consulted for further recommendations and to help guide antibiotic treatment. She was diagnosed with AML/MDS in March 2023 and was started on azacitidine and venetoclax and later, she was started on Vidaza. However, the treatment has to be discontinued in August 2023 because of poor tolerance. In March 2024, azacitidine was restarted but has to be stopped in November 2024 because of neutropenia and thrombocytopenia. Currently, she is not on any chemotherapy. She is on acyclovir, cefpodoxime and posaconazole for prophylaxis. Allergies Allergy/AdvReac Type Severity Reaction Status Date / Time No Known Allergies Allergy Verified 07/12/24 14:49 Home Medications Medication Instructions Recorded Confirmed Type levothyroxine 100 mcg tablet 75 mcg PO QAM 10/10/22 05/23/25 History acyclovir 400 mg tablet 400 mg PO BID 04/03/23 05/23/25 History cefpodoxime 200 mg tablet 200 mg PO BID 04/03/23 05/23/25 History lidocaine-prilocaine 2.5 %-2.5 % 2.5 applic topical DIRECTED PRN 04/03/23 05/23/25 History topical cream Itching metoprolol succinate 25 mg 25 mg PO BID 04/03/23 05/23/25 History tablet,extended release 24 hr ondansetron 4 mg disintegrating 4 mg PO Q6H PRN Nausea 04/03/23 05/23/25 History tablet posaconazole 100 mg tablet,delayed 300 mg PO 1XD 04/03/23 05/23/25 History release potassium chloride 20 mEq 20 meq PO BID 06/19/23 05/23/25 History tablet,extended release spironolactone 25 mg tablet 25 mg PO DAILY 06/19/23 05/23/25 History prochlorperazine maleate 10 mg 10 mg PO Q6H PRN Nausea 05/17/24 05/23/25 History tablet (Compazine) ropinirole 3 mg tablet 3 mg PO HS 05/17/24 05/23/25 History torsemide 10 mg tablet 10 mg PO MOWEFR 05/17/24 05/23/25 History Patient History Medical History Restless leg syndrome Atrial fibrillation Chronic diastolic heart failure CKD (chronic kidney disease) Pulmonary hypertension PASP 70mmHg on 09/2022 TTE Hypothyroidism Migraine ocular Valvular heart disease Reason for upcoming NEY per pt TTE 09/25/22- showed severe MVP with appearance of flail posterior MV leaflet; severe MR; MR jet is eccentric and anterior directed Hypertension Surgical History History of mitral valve repair History of hysterectomy History of colonoscopy History of tooth extraction History of adenoidectomy History of tonsillectomy Family History Mother Breast cancer Social History Smoking Status: Never smoker Second Hand Exposure: No; Do You Dip or Chew Tobacco: No; Hx Alcohol Use: No Hx Substance Use: No Preferred Language: Bulgarian Communication Ability: Effective Tobacco Drier Operator Required: No Beliefs That Will Affect Care: None Current Living Situation: Family Current Living Situation Comment: lives with grandson current occupation: Retired Other Information That Helps Us Care for You: No Feels Safe at Home: Yes Safety Concerns: Feels Safe At This Time Assistive Devices: Cane Review of Systems Negative except for what was mentioned in the H&P. Physical Exam Could not be performed as the visit was conducted via TeleMed. Results & Data Vital Signs (Past 12 Hours) Vital Signs Temp Pulse Pulse Resp BP BP Pulse Ox 05/24/25 15:16 36.2 C L 54 L 18 106/63 96 05/24/25 11:55 37 C 05/24/25 10:24 38.5 C H 05/24/25 07:35 05/24/25 07:08 36.8 C 71 14 124/68 96 05/24/25 05:00 36.8 C 70 18 125/71 97 05/24/25 04:05 36.9 C 65 18 127/66 96 O2 Del Method 05/24/25 15:16 Room Air 05/24/25 11:55 05/24/25 10:24 05/24/25 07:35 Room Air 05/24/25 07:08 Room Air 05/24/25 05:00 05/24/25 04:05 Laboratory Results Microbiology: 05/22: 2 sets of blood culture negative to date 05/23: 1 of 4 bottles of blood culture growing Gram-negative bacilli (identified as Enterobacterales via PCR) 05/23: 1 of 4 bottles of blood culture growing Gram-positive cocci in clusters (identified as Staph epidermidis, methicillin-resistant via PCR) Diagnostic Findings Imaging: Chest x-ray on 05/23: No acute pathologies
[2025-05-24] MEDS: VANCOMYCIN HCL / NSS 1,000 MG/270 ML BAG IV SCH (21:47)
[2025-05-25 07:16] LABS: Hematocrit (blood only) 30.0 % (37.0-47.0); Hemoglobin 9.5 g/dL (12.0-16.0); Mean Corpuscular Hemoglobin 24.5 pg (25.0-34.0); Mean Corpuscular Volume 77.5 fL (80.0-100.0); Platelet Count 21 K/uL (130-400); RDW Standard Deviation 77.0 fL (36.4-46.3); Red Blood Count 3.87 M/uL (4.20-5.40); White Blood Count 1.62 K/ul (4.8-10.8)
[2025-05-25 07:26] LABS: Anion Gap 8.0 (3-11); Blood Urea Nitrogen 17.0 mg/dl (6-23); Calcium 8.5 mg/dl (8.6-10.3); Carbon Dioxide 21.0 mmol/L (21-32); Chloride 107.0 mmol/L (98-107); Creatinine Clr Calc Pharmacy 47.0 ml/min; Glucose 99.0 mg/dl (70-99(Fasting)); Potassium 3.8 mmol/L (3.5-5.1); Sodium 136.0 mmol/L (136-145)
--- NOTE | 2025-05-25 11:24 | Hospitalist Progress Note ---
Date of Service May 25, 2025 Assessment & Plan (1) Neutropenic fever: (2) Pancytopenia: (3) Acute myeloid leukemia: (4) Chronic diastolic heart failure: (5) Atrial fibrillation: (6) History of mitral valve repair: (7) Restless leg syndrome: (8) Hypothyroidism: Plan 80 year old female with PMH significant for hypothyroidism, dyslipidemia, hypertension, atrial fibrillation, nonobstructive CAD, chronic diastolic CHF, vitamin B12 deficiency, CKD IIIa, RLS, history of mitral valve prolapse s/p MVR (2022), acute myeloid leukemia, myelodysplastic syndrome, and pancytopenia who presents to the ED on 05/23/2025 as a referral from the office of Dr. Barnett with [facility]. Patient was seen in the ED on 05/22/25 for weakness, cough, congestion, and hallucinations. Symptoms improved after IV fluid administration and patient was discharged with plan for close follow up with Dr. Barnett. At her appointment, patient was febrile to 38.5 with O2 sat of 82% on room air and BP 95/61 and was therefore referred to the ED for evaluation. Sepsis Neutropenic fever Pancytopenia Patient presenting from office of Dr. Barnett with fever 38.5, O2 sat 82% on room air, BP 95/61 In the ED, patient was afebrile, O2 sat 93% on room air, normotensive initially Labs revealed pancytopenia with WBC 2.32, RBC 3.44, Plt 25 Biofire negative, CXR negative, UA unremarkable, negative lactate and procalcitonin Blood culture from 05/23/25 growing Pantoea septica and GPC in clusters ID recs noted Patient reports she has had port for years, used for chemo and monitored/maintained often Last fever was on 05/24/25 at 38.5 Continue IV cefepime and Vancomycin Repeat Blood cultures ordered this AM with downtime form Will follow up cultures and final ID recs Neutropenic precautions Supportive care for fever and dry cough including tylenol and tessalon perles PRN S/p 1 PRBC on 05/24/25. Hb stable at 9.5 this AM. Will monitor Hypotension BPs as low as 84/56 but mostly 100s/50s S/p IVF BP improved and stable AML MDS Following with Dr. Barnett of [facility] Last treatment in November 2024 Planned azacitidine for 3 days every 28 days but unable to continue due to significant neutropenia and thrombocytopenia On suppressive therapy including acyclovir, cefpodoxime (hold while on IV cefepime), posaconazole Chronic diastolic CHF Follows with [facility] Patient appears euvolemic TTE in January 2025 revealed EF 55-59%, severely enlarged LA, mod aortic valve sclerosis, mild aortic valve regurg, mod MR, mod to severe TR, mod pulm HTN Continue to hold torsemide (and KCl) and spironolactone due to low BPs Monitor I&Os and daily weights Atrial fibrillation Developed post op after MVR Not on anticoagulation due to anemia Continue metoprolol CKD Creat at baseline ~1.0 Avoid nephrotoxic agents as able Monitor renal function Hypothyroidism Continue levothyroxine RLS Continue ropinirole DVT Prophylaxis: TEDs/SCDs due to anemia Code Status: FULL CODE I spent a total of 50 minutes coordinating, documenting and providing care for this patient excluding time spent in performance of separately billed services Admission and Anticipated Discharge Date Admission Date: May 24, 2025 Subjective Patient seen and examined Reports feeling like she is back to her usual self No complaints on ROS Physical Exam Constitutional: + well hydrated; no acute distress Eyes: PERRL, conjunctivae normal, anicteric sclerae ENMT: external ear and nose normal, oropharynx normal Respiratory: normal respiratory effort, lungs clear to auscultation Cardiovascular: Rate/Rhythm: regular rate and regular rhythm Chest (Breasts): Additional Comments: Port over right chest wall (not accessed). No erythema/swelling Gastrointestinal (Abdomen): normal bowel sounds, soft, nontender, no hepatosplenomegaly Musculoskeletal: No pedal edema Neurologic: PERRL, EOMI, accommodation nl, no face palsy, no dysarthria Psychiatric: A+Ox3, euthymic affect Results & Data Results & Data Vital Signs (Past 12 Hours) Vital Signs Temp Pulse Resp BP BP Pulse Ox O2 Del Method 05/25/25 07:27 37.6 C H 76 16 118/64 93 Room Air 05/24/25 23:43 37.1 C 60 16 136/70 96 Room Air Laboratory Results Abnormal lab results 05/25/25 Range/Units 06:28 WBC 1.62 L (4.8-10.8) K/ul RBC 3.87 L (4.20-5.40) M/uL Hgb 9.5 L (12.0-16.0) g/dL Hct 30.0 L (37.0-47.0) % MCV 77.5 L (80.0-100.0) fL MCH 24.5 L (25.0-34.0) pg MCHC 31.7 L (32.0-36.0) g/dL RDW Std Deviation 77.0 H (36.4-46.3) fL RDW Coeff of Paulina 28.1 H (11.5-14.5) % Plt Count 21 L* (130-400) K/uL BUN/Creatinine Ratio 21.0 H (10-20) Calcium 8.5 L (8.6-10.3) mg/dl
[2025-05-26 07:09] LABS: Hematocrit (blood only) 25.7 % (37.0-47.0); Hemoglobin 8.4 g/dL (12.0-16.0); Mean Corpuscular Hemoglobin 25.3 pg (25.0-34.0); Mean Corpuscular Volume 77.4 fL (80.0-100.0); Platelet Count 20 K/uL (130-400); RDW Standard Deviation 77.3 fL (36.4-46.3); Red Blood Count 3.32 M/uL (4.20-5.40); White Blood Count 1.45 K/ul (4.8-10.8)
[2025-05-26 07:16] LABS: Anion Gap 8.0 (3-11); Blood Urea Nitrogen 18.0 mg/dl (6-23); Calcium 8.1 mg/dl (8.6-10.3); Carbon Dioxide 21.0 mmol/L (21-32); Chloride 109.0 mmol/L (98-107); Creatinine Clr Calc Pharmacy 50.1 ml/min; Glucose 96.0 mg/dl (70-99(Fasting)); Potassium 3.7 mmol/L (3.5-5.1); Sodium 138.0 mmol/L (136-145)
[2025-05-26] MEDS: VANCOMYCIN HCL / NSS 1,000 MG/270 ML BAG IV SCH (10:05)
--- NOTE | 2025-05-26 10:40 | Hospitalist Progress Note ---
Date of Service May 26, 2025 Assessment & Plan (1) Neutropenic fever: (2) Pancytopenia: (3) Acute myeloid leukemia: (4) Chronic diastolic heart failure: (5) Atrial fibrillation: (6) History of mitral valve repair: (7) Restless leg syndrome: (8) Hypothyroidism: Plan 80 year old female with PMH significant for hypothyroidism, dyslipidemia, hypertension, atrial fibrillation, nonobstructive CAD, chronic diastolic CHF, vitamin B12 deficiency, CKD IIIa, RLS, history of mitral valve prolapse s/p MVR (2022), acute myeloid leukemia, myelodysplastic syndrome, and pancytopenia who presents to the ED on 05/23/2025 as a referral from the office of Dr. Banrett with [facility]. Patient was seen in the ED on 05/22/25 for weakness, cough, congestion, and hallucinations. Symptoms improved after IV fluid administration and patient was discharged with plan for close follow up with Dr. Barnett. At her appointment, patient was febrile to 38.5 with O2 sat of 82% on room air and BP 95/61 and was therefore referred to the ED for evaluation. Sepsis Neutropenic fever Pancytopenia Patient presenting from office of Dr. Barnett with fever 38.5, O2 sat 82% on room air, BP 95/61 In the ED, patient was afebrile, O2 sat 93% on room air, normotensive initially Labs revealed pancytopenia with WBC 2.32, RBC 3.44, Plt 25 Biofire negative, CXR negative, UA unremarkable, negative lactate and procalcitonin Blood culture from 05/23/25 growing Pantoea septica and GPC in clusters ID recs noted Patient reports she has had port for years, used for chemo and monitored/maintained often Last fever was on 05/24/25 at 38.5 Continue IV cefepime and Vancomycin Repeat Blood cultures from 05/25/25 in lab Will follow up cultures and final ID recs Neutropenic precautions Supportive care for fever and dry cough including tylenol and tessalon perles PRN S/p 1 PRBC on 05/24/25. Hb 8.4 today. Will monitor Hypotension Hypotension resolved with IVF Monitor AML MDS Following with Dr. Barnett of [facility] Last treatment in November 2024 Planned azacitidine for 3 days every 28 days but unable to continue due to significant neutropenia and thrombocytopenia On suppressive therapy including acyclovir, cefpodoxime (hold while on IV cefepime), posaconazole Chronic diastolic CHF Follows with [facility] Patient appears euvolemic TTE in January 2025 revealed EF 55-59%, severely enlarged LA, mod aortic valve sclerosis, mild aortic valve regurg, mod MR, mod to severe TR, mod pulm HTN Continue to hold torsemide (and KCl) and spironolactone due to low BPs Monitor I&Os and daily weights Atrial fibrillation Developed post op after MVR Not on anticoagulation due to anemia Continue metoprolol CKD Creat at baseline ~1.0 Avoid nephrotoxic agents as able Monitor renal function Hypothyroidism Continue levothyroxine RLS Continue ropinirole DVT Prophylaxis: TEDs/SCDs due to anemia Code Status: FULL CODE I spent a total of 35 minutes coordinating, documenting and providing care for this patient excluding time spent in performance of separately billed services Admission and Anticipated Discharge Date Admission Date: May 24, 2025 Subjective Patient seen and examined No complaints on ROS Physical Exam Constitutional: + well hydrated; no acute distress Eyes: PERRL, conjunctivae normal, anicteric sclerae ENMT: external ear and nose normal, oropharynx normal Respiratory: normal respiratory effort, lungs clear to auscultation Cardiovascular: Rate/Rhythm: regular rate and regular rhythm Gastrointestinal (Abdomen): normal bowel sounds, soft, nontender, no hepatosplenomegaly Musculoskeletal: No pedal edema Neurologic: PERRL, EOMI, accommodation nl, no face palsy, no dysarthria Psychiatric: A+Ox3, euthymic affect Results & Data Results & Data Vital Signs (Past 12 Hours) Vital Signs Temp Pulse Pulse Resp BP Pulse Ox O2 Del Method 05/26/25 08:23 64 05/26/25 07:31 36.5 C 46 L 23 124/57 L 95 Room Air 05/25/25 23:35 37 C 83 16 126/62 94 Room Air 05/25/25 23:15 Room Air Laboratory Results Abnormal lab results 05/26/25 Range/Units 06:02 WBC 1.45 L (4.8-10.8) K/ul RBC 3.32 L (4.20-5.40) M/uL Hgb 8.4 L (12.0-16.0) g/dL Hct 25.7 L (37.0-47.0) % MCV 77.4 L (80.0-100.0) fL RDW Std Deviation 77.3 H (36.4-46.3) fL RDW Coeff of Paulina 27.9 H (11.5-14.5) % Plt Count 20 L* (130-400) K/uL Chloride 109 H (98-107) mmol/L BUN/Creatinine Ratio 23.7 H (10-20) Calcium 8.1 L (8.6-10.3) mg/dl
--- NOTE | 2025-05-26 11:31 | Pharmacy Report ---
Pharmacy PK ABX Note - Date of Service May 26, 2025 - Assessment and Plan Assessment 05/26: Day # 3 vancomycin * Vancomycin level drawn this morning was 10.1mcg/mL which extrapolates to an AUC below the goal range. The maintenance dose of vancomycin has been increased. * 1 of 2 blood cultures from 05/23 finalized showing P. septica and S. epidermidis. Repeat blood cultures x 2 from 05/25 are pending. * ID consulted and recommended vancomycin and cefepime due to concern of IV port associated bloodstream infection 05/24: 80 year old F receiving empiric vancomycin and cefepime for treatment of possible bacteremia/febrile neutropenia w/ unclear source. Pertinent PMH includes AML, MDS, and CKD stage 3. Pertinent microbiologic data includes: negative MRSA Nasal Swab, blood culture 1 of 2 growing gram positive cocci in clusters (MRSE per Biofire) and gram- negative bacilli (Enterobacterales per Biofire). Cefepime appropriate for gram-negative organism based on Biofire results. Gram- positive organism likely represents contamination, but reasonable to continue empirically given fever today of 38.5 C. ID consulted. Plan Vancomycin * level drawn this morning was 10.1mcg/mL which extrapolates to an AUC of 383mg/L.hr * Increase maintenance dose: 1000 mg IV every 12 hours * Regimen is predicted to achieve target AUC/KYLEE of 400-600 mg/L.hr * Another vanco level has been scheduled for 05/28 with morning labs. Cefepime 2 g IV q12h - dosed appropriately for indication/renal function Pharmacy will continue to follow and will adjust dose/frequency as necessary. Thank you. Pharmacy has transitioned to AUC monitoring for vancomycin. AUC/KYLEE is the preferred PK/PD target and is associated with decreased risk of nephrotoxicity compared to traditional trough targets.
[2025-05-27 07:22] LABS: Anion Gap 7.0 (3-11); Blood Urea Nitrogen 20.0 mg/dl (6-23); Calcium 8.2 mg/dl (8.6-10.3); Carbon Dioxide 24.0 mmol/L (21-32); Chloride 109.0 mmol/L (98-107); Creatinine Clr Calc Pharmacy 48.8 ml/min; Glucose 100.0 mg/dl (70-99(Fasting)); Potassium 3.7 mmol/L (3.5-5.1); Sodium 140.0 mmol/L (136-145)
[2025-05-27 07:39] LABS: Hematocrit (blood only) 29.2 % (37.0-47.0); Hemoglobin 9.1 g/dL (12.0-16.0); Mean Corpuscular Hemoglobin 24.5 pg (25.0-34.0); Mean Corpuscular Volume 78.7 fL (80.0-100.0); Platelet Count 21 K/uL (130-400); RDW Standard Deviation 80.1 fL (36.4-46.3); Red Blood Count 3.71 M/uL (4.20-5.40); White Blood Count 1.35 K/ul (4.8-10.8)
--- NOTE | 2025-05-27 12:14 | Hospitalist Progress Note ---
Date of Service May 27, 2025 Assessment & Plan (1) Neutropenic fever: (2) Pancytopenia: (3) Acute myeloid leukemia: (4) Chronic diastolic heart failure: (5) Atrial fibrillation: (6) History of mitral valve repair: (7) Restless leg syndrome: (8) Hypothyroidism: Plan 80 year old female with PMH significant for hypothyroidism, dyslipidemia, hypertension, atrial fibrillation, nonobstructive CAD, chronic diastolic CHF, vitamin B12 deficiency, CKD IIIa, RLS, history of mitral valve prolapse s/p MVR (2022), acute myeloid leukemia, myelodysplastic syndrome, and pancytopenia who presents to the ED on 05/23/2025 as a referral from the office of Dr. Barnett with [facility]. Patient was seen in the ED on 05/22/25 for weakness, cough, congestion, and hallucinations. Symptoms improved after IV fluid administration and patient was discharged with plan for close follow up with Dr. Barnett. At her appointment, patient was febrile to 38.5 with O2 sat of 82% on room air and BP 95/61 and was therefore referred to the ED for evaluation. Sepsis Neutropenic fever Pancytopenia Patient presenting from office of Dr. Barnett with fever 38.5, O2 sat 82% on room air, BP 95/61 In the ED, patient was afebrile, O2 sat 93% on room air, normotensive initially Labs revealed pancytopenia with WBC 2.32, RBC 3.44, Plt 25 Biofire negative, CXR negative, UA unremarkable, negative lactate and procalcitonin Blood culture from 05/23/25 growing Pantoea septica and GPC in clusters ID recs noted Patient reports she has had port for years, used for chemo and monitored/maintained often Last fever was on 05/24/25 at 38.5 Continue IV cefepime and Vancomycin Repeat Blood cultures from 05/25/25 Awaiting ID final recs on thursday Neutropenic precautions S/p 1 PRBC on 05/24/25. Hb 9.1 today. Will monitor Hypotension Hypotension resolved with IVF Monitor AML MDS Following with Dr. Barnett of [facility] Last treatment in November 2024 Planned azacitidine for 3 days every 28 days but unable to continue due to significant neutropenia and thrombocytopenia On suppressive therapy including acyclovir, cefpodoxime (hold while on IV cefepime), posaconazole Chronic diastolic CHF Follows with [facility] Patient appears euvolemic TTE in January 2025 revealed EF 55-59%, severely enlarged LA, mod aortic valve sclerosis, mild aortic valve regurg, mod MR, mod to severe TR, mod pulm HTN Continue to hold torsemide (and KCl) and spironolactone due to low BPs Monitor I&Os and daily weights Atrial fibrillation Developed post op after MVR Not on anticoagulation due to anemia Continue metoprolol CKD Creat at baseline ~1.0 Avoid nephrotoxic agents as able Monitor renal function Hypothyroidism Continue levothyroxine RLS Continue ropinirole DVT Prophylaxis: TEDs/SCDs due to anemia Code Status: FULL CODE I spent a total of 35 minutes coordinating, documenting and providing care for this patient excluding time spent in performance of separately billed services Admission and Anticipated Discharge Date Admission Date: May 24, 2025 Subjective Patient seen and examined No complaints Physical Exam Constitutional: + well hydrated; no acute distress Eyes: PERRL, conjunctivae normal, anicteric sclerae ENMT: external ear and nose normal, oropharynx normal Respiratory: normal respiratory effort, lungs clear to auscultation Cardiovascular: Rate/Rhythm: regular rate and regular rhythm Gastrointestinal (Abdomen): normal bowel sounds, soft, nontender, no hepatosplenomegaly Musculoskeletal: No pedal edema Neurologic: PERRL, EOMI, accommodation nl, no face palsy, no dysarthria Psychiatric: A+Ox3, euthymic affect Results & Data Results & Data Vital Signs (Past 12 Hours) Vital Signs Temp Pulse Resp BP Pulse Ox O2 Del Method 05/27/25 08:21 65 05/27/25 07:44 Room Air 05/27/25 07:12 36.3 C L 54 L 16 134/76 98 Room Air Laboratory Results Abnormal lab results 05/27/25 Range/Units 06:34 WBC 1.35 L (4.8-10.8) K/ul RBC 3.71 L (4.20-5.40) M/uL Hgb 9.1 L (12.0-16.0) g/dL Hct 29.2 L (37.0-47.0) % MCV 78.7 L (80.0-100.0) fL MCH 24.5 L (25.0-34.0) pg MCHC 31.2 L (32.0-36.0) g/dL RDW Std Deviation 80.1 H (36.4-46.3) fL RDW Coeff of Paulina 28.5 H (11.5-14.5) % Plt Count 21 L* (130-400) K/uL Chloride 109 H (98-107) mmol/L BUN/Creatinine Ratio 25.6 H (10-20) Glucose 100 H (70-99(Fasting)) mg/dl Calcium 8.2 L (8.6-10.3) mg/dl
[2025-05-28 06:46] LABS: Anion Gap 6.0 (3-11); Blood Urea Nitrogen 21.0 mg/dl (6-23); Calcium 8.1 mg/dl (8.6-10.3); Carbon Dioxide 24.0 mmol/L (21-32); Chloride 108.0 mmol/L (98-107); Creatinine Clr Calc Pharmacy 46.5 ml/min; Glucose 91.0 mg/dl (70-99(Fasting)); Potassium 3.7 mmol/L (3.5-5.1); Sodium 138.0 mmol/L (136-145)
[2025-05-28 06:50] LABS: Hematocrit (blood only) 28.6 % (37.0-47.0); Hemoglobin 8.8 g/dL (12.0-16.0); Mean Corpuscular Hemoglobin 24.6 pg (25.0-34.0); Mean Corpuscular Volume 80.1 fL (80.0-100.0); Platelet Count 20 K/uL (130-400); RDW Standard Deviation 82.5 fL (36.4-46.3); Red Blood Count 3.57 M/uL (4.20-5.40); White Blood Count 1.37 K/ul (4.8-10.8)
--- NOTE | 2025-05-28 10:26 | Pharmacy Report ---
Pharmacy PK ABX Note - Date of Service May 28, 2025 - Assessment and Plan Assessment 05/28: * Day # 5 vancomycin. Renal function stable. Repeat blood cultures from 05/25 are NGTD. Random level this AM 17.7mcg/mL. ID following. 05/26: Day # 3 vancomycin * Vancomycin level drawn this morning was 10.1mcg/mL which extrapolates to an AUC below the goal range. The maintenance dose of vancomycin has been increased. * 1 of 2 blood cultures from 05/23 finalized showing P. septica and S. epidermidis. Repeat blood cultures x 2 from 05/25 are pending. * ID consulted and recommended vancomycin and cefepime due to concern of IV port associated bloodstream infection 05/24: 80 year old F receiving empiric vancomycin and cefepime for treatment of possible bacteremia/febrile neutropenia w/ unclear source. Pertinent PMH includes AML, MDS, and CKD stage 3. Pertinent microbiologic data includes: negative MRSA Nasal Swab, blood culture 1 of 2 growing gram positive cocci in clusters (MRSE per Biofire) and gram- negative bacilli (Enterobacterales per Biofire). Cefepime appropriate for gram-negative organism based on Biofire results. Gram- positive organism likely represents contamination, but reasonable to continue empirically given fever today of 38.5 C. ID consulted. Plan Vancomycin * Current regimen: vancomycin 1gm IV q12h * Random level this AM, 17.7mcg/mL (~8h level), predicted to achieve ssAUC 575mg/L.hr - therapeutic. * Repeat level in ~ 48h Pharmacy will continue to follow and will adjust dose/frequency as necessary. Thank you. Pharmacy has transitioned to AUC monitoring for vancomycin. AUC/KYLEE is the pref erred PK/PD target and is associated with decreased risk of nephrotoxicity compared to traditional trough targets.
--- NOTE | 2025-05-28 12:14 | Hospitalist Progress Note ---
Date of Service May 28, 2025 Assessment & Plan (1) Neutropenic fever: (2) Pancytopenia: (3) Acute myeloid leukemia: (4) Chronic diastolic heart failure: (5) Atrial fibrillation: (6) History of mitral valve repair: (7) Restless leg syndrome: (8) Hypothyroidism: Plan 80 year old female with PMH significant for hypothyroidism, dyslipidemia, hypertension, atrial fibrillation, nonobstructive CAD, chronic diastolic CHF, vitamin B12 deficiency, CKD IIIa, RLS, history of mitral valve prolapse s/p MVR (2022), acute myeloid leukemia, myelodysplastic syndrome, and pancytopenia who presents to the ED on 05/23/2025 as a referral from the office of Dr. Barnett with [facility]. Patient was seen in the ED on 05/22/25 for weakness, cough, congestion, and hallucinations. Symptoms improved after IV fluid administration and patient was discharged with plan for close follow up with Dr. Barnett. At her appointment, patient was febrile to 38.5 with O2 sat of 82% on room air and BP 95/61 and was therefore referred to the ED for evaluation. Sepsis Neutropenic fever Pancytopenia Patient presenting from office of Dr. Barnett with fever 38.5, O2 sat 82% on room air, BP 95/61 In the ED, patient was afebrile, O2 sat 93% on room air, normotensive initially Labs revealed pancytopenia with WBC 2.32, RBC 3.44, Plt 25 Biofire negative, CXR negative, UA unremarkable, negative lactate and procalcitonin Blood culture from 05/23/25 growing Pantoea septica and staph epidermidis ID recs noted Last fever was on 05/24/25 at 38.5 Currently IV cefepime and Vancomycin Repeat Blood cultures from 05/25/25 negative so far Awaiting ID final recs tomorrow Neutropenic precautions S/p 1 PRBC on 05/24/25. Hb 8.8 today. Will monitor Hypotension Hypotension resolved with IVF Monitor AML MDS Following with Dr. Barnett of [facility] Last treatment in November 2024 Planned azacitidine for 3 days every 28 days but unable to continue due to significant neutropenia and thrombocytopenia On suppressive therapy including acyclovir, cefpodoxime (hold while on IV cefepime), posaconazole Chronic diastolic CHF [facility] Patient appears euvolemic TTE in January 2025 revealed EF 55-59%, severely enlarged LA, mod aortic valve sclerosis, mild aortic valve regurg, mod MR, mod to severe TR, mod pulm HTN Continue to hold torsemide (and KCl) and spironolactone due to low BPs Monitor I&Os and daily weights Atrial fibrillation Developed post op after MVR Not on anticoagulation due to anemia Continue metoprolol CKD Creat at baseline ~1.0 Avoid nephrotoxic agents as able Monitor renal function Hypothyroidism Continue levothyroxine RLS Continue ropinirole DVT Prophylaxis: TEDs/SCDs due to anemia Code Status: FULL CODE I spent a total of 35 minutes coordinating, documenting and providing care for this patient excluding time spent in performance of separately billed services Admission and Anticipated Discharge Date Admission Date: May 24, 2025 Subjective Patient seen and examined No complaints Physical Exam Constitutional: + well hydrated; no acute distress Eyes: PERRL, conjunctivae normal, anicteric sclerae ENMT: external ear and nose normal, oropharynx normal Respiratory: normal respiratory effort, lungs clear to auscultation Cardiovascular: Rate/Rhythm: regular rate and regular rhythm Gastrointestinal (Abdomen): normal bowel sounds, soft, nontender, no hepatosplenomegaly Musculoskeletal: Trace pedal edema Neurologic: PERRL, EOMI, accommodation nl, no face palsy, no dysarthria Psychiatric: A+Ox3, euthymic affect Results & Data Results & Data Vital Signs (Past 12 Hours) Vital Signs Temp Pulse Resp BP Pulse Ox O2 Del Method 05/28/25 07:48 36.4 C L 68 16 132/54 L 90 Room Air 05/28/25 07:25 Room Air Laboratory Results Abnormal lab results 05/28/25 Range/Units 05:39 WBC 1.37 L (4.8-10.8) K/ul RBC 3.57 L (4.20-5.40) M/uL Hgb 8.8 L (12.0-16.0) g/dL Hct 28.6 L (37.0-47.0) % MCH 24.6 L (25.0-34.0) pg MCHC 30.8 L (32.0-36.0) g/dL RDW Std Deviation 82.5 H (36.4-46.3) fL RDW Coeff of Paulina 28.7 H (11.5-14.5) % Plt Count 20 L* (130-400) K/uL Chloride 108 H (98-107) mmol/L BUN/Creatinine Ratio 25.6 H (10-20) Calcium 8.1 L (8.6-10.3) mg/dl
[2025-05-29 08:13] LABS: Hematocrit (blood only) 29.0 % (37.0-47.0); Hemoglobin 9.0 g/dL (12.0-16.0); Mean Corpuscular Hemoglobin 24.5 pg (25.0-34.0); Mean Corpuscular Volume 79.0 fL (80.0-100.0); Platelet Count 18 K/uL (130-400); RDW Standard Deviation 82.0 fL (36.4-46.3); Red Blood Count 3.67 M/uL (4.20-5.40); White Blood Count 1.69 K/ul (4.8-10.8)
[2025-05-29 08:25] LABS: Anion Gap 6.0 (3-11); Blood Urea Nitrogen 17.0 mg/dl (6-23); Calcium 8.1 mg/dl (8.6-10.3); Carbon Dioxide 25.0 mmol/L (21-32); Chloride 106.0 mmol/L (98-107); Creatinine Clr Calc Pharmacy 50.1 ml/min; Glucose 92.0 mg/dl (70-99(Fasting)); Potassium 3.6 mmol/L (3.5-5.1); Sodium 137.0 mmol/L (136-145)
--- NOTE | 2025-05-29 16:07 | Hospitalist Progress Note ---
Date of Service May 29, 2025 Assessment & Plan (1) Neutropenic fever: (2) Pancytopenia: (3) Acute myeloid leukemia: (4) Chronic diastolic heart failure: (5) Atrial fibrillation: (6) History of mitral valve repair: (7) Restless leg syndrome: (8) Hypothyroidism: Plan 80 year old female with PMH significant for hypothyroidism, dyslipidemia, hypertension, atrial fibrillation, nonobstructive CAD, chronic diastolic CHF, vitamin B12 deficiency, CKD IIIa, RLS, history of mitral valve prolapse s/p MVR (2022), acute myeloid leukemia, myelodysplastic syndrome, and pancytopenia who presents to the ED on 05/23/2025 as a referral from the office of Dr. Barnett with [facility]. Patient was seen in the ED on 05/22/25 for weakness, cough, congestion, and hallucinations. Symptoms improved after IV fluid administration and patient was discharged with plan for close follow up with Dr. Barnett. At her appointment, patient was febrile to 38.5 with O2 sat of 82% on room air and BP 95/61 and was therefore referred to the ED for evaluation. Sepsis Neutropenic fever Pancytopenia Patient presenting from office of Dr. Barnett with fever 38.5, O2 sat 82% on room air, BP 95/61 In the ED, patient was afebrile, O2 sat 93% on room air, normotensive initially Labs revealed pancytopenia with WBC 2.32, RBC 3.44, Plt 25 Biofire negative, CXR negative, UA unremarkable, negative lactate and procalcitonin Blood culture from 05/23/25 growing Pantoea septica and staph epidermidis ID recs noted Last fever was on 05/24/25 at 38.5 Currently IV cefepime and Vancomycin Repeat Blood cultures from 05/25/25 negative so far I had multidisciplinary conversations with ID and patient's customer services manager Dr Barnett. Dr Barnett is ok with port removal ID recommends port removal and then oral linezolid 600mg BID and levaquin 750mg daily till 06/04/25, then afterwards change prophylaxis cefpodoxime to levaquin 500mg daily for better coverage Gen surg consulted for port removal. They will like platelet count at 50K Updated patient and son in room about recommendations. Order placed for platelet transfusion. Will check Plt count after transfusion and transfuse prn to get to 50K for surgical procedure NPO PMN for procedure in AM Neutropenic precautions S/p 1 PRBC on 05/24/25. Hb 9 today. Will monitor Hypotension Hypotension resolved with IVF BP now elevated Monitor AML MDS Following with Dr. 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 (and KCl) and spironolactone Monitor I&Os and daily weights Atrial fibrillation Developed post op after MVR Not on anticoagulation due to anemia Continue metoprolol CKD Creat at baseline ~1.0 Avoid nephrotoxic agents as able Monitor renal function Hypothyroidism Continue levothyroxine RLS Continue ropinirole DVT Prophylaxis: TEDs/SCDs due to anemia Code Status: FULL CODE Updated daughter in law over the phone as well I spent a total of 50 minutes coordinating, documenting and providing care for this patient excluding time spent in performance of separately billed services Admission and Anticipated Discharge Date Admission Date: May 24, 2025 Subjective Patient seen and examined No complaints today Physical Exam Constitutional: + well hydrated; no acute distress Eyes: PERRL, conjunctivae normal, anicteric sclerae ENMT: external ear and nose normal, oropharynx normal Respiratory: normal respiratory effort, lungs clear to auscultation Cardiovascular: Rate/Rhythm: regular rate and regular rhythm Gastrointestinal (Abdomen): normal bowel sounds, soft, nontender, no hepatosplenomegaly Musculoskeletal: No pedal edema Neurologic: PERRL, EOMI, accommodation nl, no face palsy, no dysarthria Psychiatric: A+Ox3, euthymic affect Results & Data Results & Data Vital Signs (Past 12 Hours) Vital Signs Temp Pulse Resp BP BP Pulse Ox O2 Del Method 05/29/25 14:32 36.7 C 64 15 125/60 93 Room Air 05/29/25 07:13 36.8 C 60 16 157/73 H 95 Room Air 05/29/25 07:00 Room Air Laboratory Results Abnormal lab results 05/29/25 Range/Units 07:37 WBC 1.69 L (4.8-10.8) K/ul RBC 3.67 L (4.20-5.40) M/uL Hgb 9.0 L (12.0-16.0) g/dL Hct 29.0 L (37.0-47.0) % MCV 79.0 L (80.0-100.0) fL MCH 24.5 L (25.0-34.0) pg MCHC 31.0 L (32.0-36.0) g/dL RDW Std Deviation 82.0 H (36.4-46.3) fL RDW Coeff of Paulina 29.1 H (11.5-14.5) % Plt Count 18 L* (130-400) K/uL Platelet Estimate Signific. Decreased L (Normal) BUN/Creatinine Ratio 22.4 H (10-20) Calcium 8.1 L (8.6-10.3) mg/dl
[2025-05-29] MEDS ORDERED: SODIUM CHLORIDE 0.9% 100 ML IV PRN ×2 (16:15→22:50)
--- NOTE | 2025-05-29 16:40 | Surgery Consultation ---
Date of Consultation May 29, 2025 Assessment & Plan (1) Acute myeloid leukemia: This is an 80y F with PMH of AML who presents to the [facility] on 05/22/25 with complaints of altered mental status and feeling weak almost like she couldn't walk. Patient was admitted to the hospital and worked up. She has had + blood cultures on 05/23 growing staph epi and pantoea septica. Blood cultures 05/25 so far NGTD. We have been consulted today to consider port removal. She has had a port in place since last year by [facility] she has used for chemo. Patient reports it was last used november of this year and chemo has since been on hold given her blood work. She denies any fevers/chills, abdominal pain, CP/SOB, nausea/v omiting, diarrhea. No issue with port itself or overlying skin. Urine analysis and CXR unremarkable. Both infectious disease and heme/onc are recommending removing port at this time given concern for bacteremia. Today WBC 1.69, Hbg 9, plt low at 18, Cr 0.7. Patient's vitals are stable and she is afebrile. Port appears in good position without any overlying skin changes or superficial findings of infection. We are okay with removing port as early as tomorrow, 05/30/25 if patient's lab counts improve. Would prefer plt count around 50,000, she is getting a unit this evening and medicine will recheck labs and transfuse as needed until we get to a level our services would be able to remove port. NPO at midnight. Will follow up tomorrow. (2) Staphylococcus epidermidis bacteremia: (3) Gram-negative bacteremia: History of Present Illness Attending Physician: Rachel Renae MD History of Present Illness This is an 80y F with PMH of AML who presents to the [facility] on 05/22/25 with complaints of altered mental status and feeling weak almost like she couldn't w alk. Patient was admitted to the hospital and worked up. She has had + blood cultures on 05/23 growing staph epi and pantoea septica. We have been consulted today to consider port removal. She has had a port in place since last year by [email or web address] she has used for chemo. Patient reports it was last used november of this year and chemo has since been on hold because of thrombocytopenia and neutropenia. She denies any fevers/chills, abdominal pain, CP/SOB, nausea/vomiting, diarrhea. No issue with port itself or overlying skin. Allergies Allergy/AdvReac Type Severity Reaction Status Date / Time No Known Allergies Allergy Verified 07/12/24 14:49 Home Medications Medication Instructions Recorded Confirmed Type levothyroxine 100 mcg tablet 75 mcg PO QAM 10/10/22 05/23/25 History acyclovir 400 mg tablet 400 mg PO BID 04/03/23 05/23/25 History cefpodoxime 200 mg tablet 200 mg PO BID 04/03/23 05/23/25 History lidocaine-prilocaine 2.5 %-2.5 % 2.5 applic topical DIRECTED PRN 04/03/23 05/23/25 History topical cream Itching metoprolol succinate 25 mg 25 mg PO BID 04/03/23 05/23/25 History tablet,extended release 24 hr ondansetron 4 mg disintegrating 4 mg PO Q6H PRN Nausea 04/03/23 05/23/25 History tablet posaconazole 100 mg tablet,delayed 300 mg PO 1XD 04/03/23 05/23/25 History release potassium chloride 20 mEq 20 meq PO BID 06/19/23 05/23/25 History tablet,extended release spironolactone 25 mg tablet 25 mg PO DAILY 06/19/23 05/23/25 History prochlorperazine maleate 10 mg 10 mg PO Q6H PRN Nausea 05/17/24 05/23/25 History tablet (Compazine) ropinirole 3 mg tablet 3 mg PO HS 05/17/24 05/23/25 History torsemide 10 mg tablet 10 mg PO MOWEFR 05/17/24 05/23/25 History Patient History Medical History Restless leg syndrome Atrial fibrillation Chronic diastolic heart failure CKD (chronic kidney disease) Pulmonary hypertension PASP 70mmHg on 09/2022 TTE Hypothyroidism Migraine ocular Valvular heart disease Reason for upcoming NEY per pt TTE 09/25/22- showed severe MVP with appearance of flail posterior MV leaflet; severe MR; MR jet is eccentric and anterior directed Hypertension Surgical History History of mitral valve repair History of hysterectomy History of colonoscopy History of tooth extraction History of adenoidectomy History of tonsillectomy Family History Mother Breast cancer Social History Smoking Status: Never smoker Second Hand Exposure: No; Do You Dip or Chew Tobacco: No; Hx Alcohol Use: No Hx Substance Use: No Preferred Language: Bahraini Communication Ability: Effective Motor Setter Required: No Beliefs That Will Affect Care: None Current Living Situation: Family Current Living Situation Comment: lives with grandson current occupation: Retired Other Information That Helps Us Care for You: No Feels Safe at Home: Yes Safety Concerns: Feels Safe At This Time Assistive Devices: Cane Review of Systems Constitutional: + fatigue and + weakness; no fever and n o chills Respiratory: no dyspnea Cardiovascular: no chest pain Gastrointestinal: no abdominal pain, no nausea, no vomiting and no change in bowel habits Integumentary: no problem reported Neurologic: + problem reported (delusions) Physical Exam Physical Exam: awake/alert, no distress Respiratory: normal respiratory effort on room air Gastrointestinal (Abdomen): Percussion/Palpation: abdomen soft Skin: right sided port in upper chest appears in good position without any overlying skin changes or superficial findings of infection. Results & Data Vital Signs (Past 12 Hours) Vital Signs Temp Pulse Resp BP BP Pulse Ox O2 Del Method 05/29/25 14:32 98.1 F 64 15 125/60 93 Room Air 05/29/25 07:13 98.2 F 60 16 157/73 H 95 Room Air 05/29/25 07:00 Room Air PG Care Time/CCT Total # of Minutes Spent Total Time Spent with Patient: Total time spent is greater than 50% in coordination of care (as documented) at patient's floor/unit and/or counseling patient: Coding Level of Care Code 12898 INT INP/OBS CARE 1/40MIN Diagnoses Acute myeloid leukemia C92.00 Staphylococcus epidermidis bacteremia R78.81; B95.7 Gram-negative bacteremia R78.81
[2025-05-29] MEDS: TORSEMIDE 10 MG TAB PO SCH (18:00)
[2025-05-29] MEDS: SPIRONOLACTONE 25 MG TAB PO SCH (18:00)
[2025-05-29 19:44] LABS: Hematocrit (blood only) 27.6 % (37.0-47.0); Hemoglobin 8.7 g/dL (12.0-16.0); Mean Corpuscular Hemoglobin 25.1 pg (25.0-34.0); Mean Corpuscular Volume 79.8 fL (80.0-100.0); Platelet Count 33 K/uL (130-400); RDW Standard Deviation 83.3 fL (36.4-46.3); Red Blood Count 3.46 M/uL (4.20-5.40); White Blood Count 1.97 K/ul (4.8-10.8)
[2025-05-30 01:38] LABS: Hematocrit (blood only) 25.5 % (37.0-47.0); Hemoglobin 8.1 g/dL (12.0-16.0); Mean Corpuscular Hemoglobin 24.6 pg (25.0-34.0); Mean Corpuscular Volume 77.5 fL (80.0-100.0); Platelet Count 44 K/uL (130-400); RDW Standard Deviation 79.7 fL (36.4-46.3); Red Blood Count 3.29 M/uL (4.20-5.40); White Blood Count 2.13 K/ul (4.8-10.8)
[2025-05-30] MEDS: ACETAMINOPHEN 325 MG TAB PO STA (01:50)
[2025-05-30] MEDS ORDERED: SODIUM CHLORIDE 0.9% 100 ML IV PRN ×2 (02:04→07:15)
--- NOTE | 2025-05-30 02:15 | XRay Report ---
EXAM: XR chest 1V portable CLINICAL HISTORY: low o2 TECHNIQUE: An X-ray image of the chest is obtained in AP projection. 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 FINDINGS: Central venous line seen in situ. Mild, prominent bronchovascular marking is noted in both lungs. Cardiomegaly. No acute osseous abnormality. IMPRESSION: Cardiomegaly.-stable. Central venous line seen in situ. Mild, prominent bronchovascular marking is noted in both lungs.-stable. Electronically signed by Corby Barber 05-30-2025 02:15 AM
[2025-05-30] MEDS: FUROSEMIDE INJ 20 MG/2 ML VIAL IV ONE (02:32)
[2025-05-30 02:33] LABS: ALC (manual) 1.21 K/uL (1.2-3.4); ANC (manual) 0.32 K/uL (1.4-6.5); Acanthocytes 1+; Anisocytosis Present; Blast # (manual) 0.28 K/uL (0-0); Ovalocytes 1+; Polychromasia 3+; Tear Drop Cells 1+
[2025-05-30 06:33] LABS: Hematocrit (blood only) 27.5 % (37.0-47.0); Hemoglobin 8.6 g/dL (12.0-16.0); Mean Corpuscular Hemoglobin 24.5 pg (25.0-34.0); Mean Corpuscular Volume 78.3 fL (80.0-100.0); Platelet Count 44 K/uL (130-400); RDW Standard Deviation 79.9 fL (36.4-46.3); Red Blood Count 3.51 M/uL (4.20-5.40); White Blood Count 1.82 K/ul (4.8-10.8)
[2025-05-30 06:46] LABS: Anion Gap 9.0 (3-11); Blood Urea Nitrogen 19.0 mg/dl (6-23); Calcium 7.9 mg/dl (8.6-10.3); Carbon Dioxide 30.0 mmol/L (21-32); Chloride 102.0 mmol/L (98-107); Creatinine Clr Calc Pharmacy 42.3 ml/min; Glucose 113.0 mg/dl (70-99(Fasting)); Potassium 2.9 mmol/L (3.5-5.1); Sodium 141.0 mmol/L (136-145)
--- NOTE | 2025-05-30 06:58 | Anesthesiology Consultation ---
Date of Service May 30, 2025 Assessment & Plan Chart Review Chart Review: Acceptable Risk for Surgery and Patient NOT seen in Pre Admission Testing History Surgery Operation Date: 05/30/25 08:20 Proposed Procedures p Mediport Girish - Jacob Dempsey DO Height/Weight Height: 5 ft 4 in Weight: 60.1 kg Allergies Allergy/AdvReac Type Severity Reaction Status Date / Time No Known Allergies Allergy Verified 07/12/24 14:49 Medications Home Medications Medication Instructions Recorded Confirmed Last Taken levothyroxine 100 mcg tablet 75 mcg PO QAM 10/10/22 05/23/25 Unknown acyclovir 400 mg tablet 400 mg PO BID 04/03/23 05/23/25 Unknown cefpodoxime 200 mg tablet 200 mg PO BID 04/03/23 05/23/25 Unknown lidocaine-prilocaine 2.5 %-2.5 % 2.5 applic topical DIRECTED PRN 04/03/23 05/23/25 Unknown topical cream Itching metoprolol succinate 25 mg 25 mg PO BID 04/03/23 05/23/25 Unknown tablet,extended release 24 hr ondansetron 4 mg disintegrating 4 mg PO Q6H PRN Nausea 04/03/23 05/23/25 Unknown tablet posaconazole 100 mg tablet,delayed 300 mg PO 1XD 04/03/23 05/23/25 Unknown release potassium chloride 20 mEq 20 meq PO BID 06/19/23 05/23/25 Unknown tablet,extended release spironolactone 25 mg tablet 25 mg PO DAILY 06/19/23 05/23/25 Unknown prochlorperazine maleate 10 mg 10 mg PO Q6H PRN Nausea 05/17/24 05/23/25 Unknown tablet (Compazine) ropinirole 3 mg tablet 3 mg PO HS 05/17/24 05/23/25 Unknown torsemide 10 mg tablet 10 mg PO MOWEFR 05/17/24 05/23/25 Unknown Active Medications Generic Name Dose Route Start Last Admin Trade Name Freq PRN Reason Stop Dose Admin Acetaminophen 650 mg 05/23/25 13:55 05/24/25 10:26 Acetaminophen 325 Mg Tab PO 06/22/25 13:54 650 mg Q4H PRN Administration pain/fever Acyclovir 400 mg 05/23/25 21:00 05/29/25 20:40 Acyclovir 400 Mg Tab PO 06/22/25 20:59 400 mg BID DONOVAN Administration Cefepime HCl 2,000 mg in 20 mls @ 5 mls/min 05/23/25 21:00 05/29/25 20:41 Maxipime 2000mg IV 06/06/25 20:59 5 mls/min Q12H DONOVAN Administration Protocol Vancomycin HCl 1,000 mg in 270 mls @ 200 mls/hr 05/26/25 09:00 05/29/25 22:19 Vancomycin Hcl / Nss IV 06/07/25 08:59 Infused Q12H DONOVAN Infusion Levothyroxine Sodium 75 mcg 05/24/25 06:30 05/30/25 06:30 Levothyroxine Sodium 75 Mcg Tablet PO 06/23/25 06:29 75 mcg DAILYBB DONOVAN Administration Metoprolol Succinate 25 mg 05/23/25 21:00 05/29/25 20:40 Metoprolol Succ 25mg Ext Rel Tab PO 06/22/25 20:59 25 mg BID DONOVAN Administration Posaconazole 300 mg 05/24/25 09:00 05/29/25 09:[address] Tab PO 06/23/25 08:59 300 mg DAILY DONOVAN Administration Ropinirole HCl 3 mg 05/23/25 21:00 05/29/25 20:40 Ropinirole Hcl 1 Mg Tablet PO 06/22/25 20:59 3 mg HS DONOVAN Administration Spironolactone 25 mg 05/29/25 16:30 05/29/25 18:00 Spironolactone 25 Mg Tab PO 06/28/25 16:29 25 mg QAM DONOVAN Administration Torsemide 10 mg 05/29/25 16:30 05/29/25 18:00 Torsemide 10 Mg Tab PO 06/28/25 16:29 10 mg MOWEFR DONOVAN Administration Past Medical History Medical History Restless leg syndrome Atrial fibrillation Chronic diastolic heart failure CKD (chronic kidney disease) Pulmonary hypertension PASP 70mmHg on 09/2022 TTE Hypothyroidism Migraine ocular Valvular heart disease Reason for upcoming NEY per pt TTE 09/25/22- showed severe MVP with appearance of flail posterior MV leaflet; severe MR; MR jet is eccentric and anterior directed Hypertension Past Family History Family History Mother Breast cancer Past Surgical History Surgical History History of mitral valve repair History of hysterectomy History of colonoscopy History of tooth extraction History of adenoidectomy History of tonsillectomy Social History Smoking Status: Never smoker Do You Dip or Chew Tobacco: No Hx Alcohol Use: No Alcohol type: beer alcohol intake frequency: a few times a month Hx Substance Use: No substance use type: does not use Physical Exam Vital Signs Last Vital Signs Temp 36.6 C 05/30/25 06:41 Pulse 53 L 05/30/25 06:41 Resp 16 05/30/25 06:41 BP 112/61 05/30/25 06:41 Pulse Ox 93 05/30/25 06:41 O2 Del Method Room Air 05/29/25 20:35 O2 Flow Rate 2 05/30/25 00:49 Testing Laboratory Results 05/30/25 06:01 05/30/25 06:01 Urine Color Dark Yellow 05/23/25 09:30 Urine Appearance Clear (Clear) 05/23/25 09:30 Urine pH 5.5 (4.5-7.5) 05/23/25 09:30 Ur Specific [place] 1.019 (1.000-1.030) 05/23/25 09:30 Urine Protein 1+ (Negative) H 05/23/25 09:30 Urine Glucose (UA) Negative (Negative) 05/23/25 09:30 Urine Ketones Negative (Negative) 05/23/25 09:30 Urine Nitrite Negative (Negative) 05/23/25 09:30 Ur Leukocyte Esterase Negative (Negative) 05/23/25 09:30 Urine WBC (Auto) 0-5 /hpf (0-5) 05/23/25 09:30 Urine RBC (Auto) 0-2 /hpf (0-2) 05/23/25 09:30 U Hyaline Cast (Auto) 3-5 /lpf (0-2) H 05/23/25 09:30 U Epithel Cells (Auto) 0-2 /hpf (0-2) 05/23/25 09:30 Urine Bacteria (Auto) None Seen (None Seen) 05/23/25 09:30 Blood Type A Positive 05/24/25 00:10 Antibody Screen NEGATIVE 05/24/25 00:10 11/18/25 09:30 Aerobic Blood Culture - Final Blood No growth in Aerobic bottle after 5 days. Anaerobic Blood Culture - Final No growth in Anaerobic bottle after 5 days. 05/25/25 11:24 Aerobic Blood Culture - Preliminary Blood No growth in Aerobic bottle after 48 hours. Anaerobic Blood Culture - Preliminary No growth in Anaerobic bottle after 48 hours. 05/25/25 11:18 Aerobic Blood Culture - Preliminary Blood No growth in Aerobic bottle after 48 hours. Anaerobic Blood Culture - Preliminary No growth in Anaerobic bottle after 48 hours. 05/23/25 09:14 Aerobic Blood Culture - Final Blood Pantoea septica Anaerobic Blood Culture - Final Staphylococcus epidermidis
[2025-05-30] MEDS: POTASSIUM CHLORIDE CRTAB 20 MEQ TABCR PO SCH (09:24)
[2025-05-30] MEDS: POTASSIUM CHLORIDE / WTR 10 MEQ/100 ML PLCT IV SCH ×2 (09:24→17:28)
[2025-05-30 10:46] LABS: Hematocrit (blood only) 25.4 % (37.0-47.0); Hemoglobin 8.1 g/dL (12.0-16.0); Mean Corpuscular Hemoglobin 24.9 pg (25.0-34.0); Mean Corpuscular Volume 78.2 fL (80.0-100.0); Platelet Count 48 K/uL (130-400); RDW Standard Deviation 81.0 fL (36.4-46.3); Red Blood Count 3.25 M/uL (4.20-5.40); White Blood Count 2.18 K/ul (4.8-10.8)
[2025-05-30] MEDS ORDERED: POTASSIUM CHLORIDE CRTAB 20 MEQ TABCR PO STA (11:39)
[2025-05-30] MEDS ORDERED: MIDAZOLAM HCL 1 MG/ML 2ML VIAL ONE (12:37)
[2025-05-30] MEDS: LACTATED RINGER'S 1,000 ML IV SCH (12:40)
[2025-05-30] MEDS ORDERED: MoRPHine SULFATE 10 MG/ML CARP/VIAL IV PRN (12:50)
[2025-05-30] MEDS ORDERED: ONDANSETRON INJ 2 MG/ML 2 ML VIAL IV PRN (12:50)
[2025-05-30] MEDS ORDERED: HYDROmorphone INJ 1 MG/ML SYRINGE IV PRN (12:50)
[2025-05-30] MEDS ORDERED: ATROPINE SULFATE 0.1 MG/ML 10ML SYR IV PRN (12:50)
--- NOTE | 2025-05-30 13:06 | Surgery Progress Note ---
Date of Service May 30, 2025 Assessment & Plan (1) Gram-negative bacteremia: Plan: Proceed with port removal today Consent was obtained, risks discussed including bleeding, infection Admission and Anticipated Discharge Date Admission Date: May 24, 2025 Subjective Patient seen and examined. No acute events overnight. Platelets are 44,000. She got another sixpack. Review of Systems Constitutional: no fever and no chills Eyes: no blind spots and no discharge Respiratory: no cough and no dyspnea Cardiovascular: no chest pain and no dyspnea on exertion Gastrointestinal: no abdominal pain, no nausea and no vomiting Genitourinary: no dysuria and no urinary hesitancy Psychiatric: no behavioral changes and no depression Physical Exam Constitutional: WD/WN, vitals as above Respiratory: normal respiratory effort, lungs clear to auscultation Cardiovascular: RRR, no murmur, no edema Chest (Breasts): Additional Comments: Port in place in the right chest, no erythema or drainage Gastrointestinal (Abdomen): normal bowel sounds, soft, nontender, no hepatosplenomegaly Psychiatric: A+Ox3, euthymic affect Results & Data Vital Signs (Past 12 Hours) Vital Signs Temp Pulse Pulse Resp BP BP Pulse Ox 05/30/25 12:29 36.8 C 66 20 152/61 H 96 05/30/25 09:30 36.7 C 61 18 129/55 L 05/30/25 08:44 36.7 C 61 16 103/64 94 05/30/25 07:44 36.3 C L 54 L 18 111/65 93 05/30/25 07:23 36.7 C 53 L 16 109/62 91 05/30/25 07:14 36.7 C 56 L 16 109/62 91 05/30/25 06:59 36.5 C 58 L 18 113/66 95 05/30/25 06:41 36.6 C 53 L 16 112/61 93 O2 Del Method 05/30/25 12:29 Room Air 05/30/25 09:30 05/30/25 08:44 05/30/25 07:44 05/30/25 07:23 Room Air 05/30/25 07:14 05/30/25 06:59 05/30/25 06:41 PG Care Time/CCT Total # of Minutes Spent Total Time Spent with Patient: Total time spent is greater than 50% in coordination of care (as documented) at patient's floor/unit and/or counseling patient: Coding Level of Care Code 23163 SUB INP/OBS CARE 07/30MIN Diagnoses Gram-negative bacteremia R78.81
[2025-05-30] MEDS: BUPIVACAINE/EPINEPHRINE 0.25% 1:200,000 30 ML VIAL ONE (13:33)
[2025-05-30] MEDS ORDERED: PROPOFOL IV EMULSION 10 MG/ML 20 ML VIAL IV ONE (13:37)
--- NOTE | 2025-05-30 13:40 | Post Operative Brief Note ---
PG Immediate Post Op with CF Date of Surgery May 30, 2025 Pre & Post Diagnosis Operation Date: 05/30/25 08:20 Pre-Op Diagnosis: Neutropenic fever Post-Op Diagnosis: Neutropenic fever I identified the patient and participated in the time-out.: Yes Procedure Operation Date: 05/30/25 08:20 Actual Procedures p Mediport Removal(Not Applicable) - Jacob Dempsey DO Surgeon Jacob Dempsey DO Cooler Tender Jennifer Talamantes PA-C Estimated Blood Loss 5 Findings See Below Intact port and catheter upon removal Specimens Specimen Description: 1. Catheter tip for culture Anesthesia Type General Complications none Disposition Disposition: Recovery Room
--- NOTE | 2025-05-30 13:42 | Operative Report ---
PG Post Operative Report Pre & Post Diagnosis Operation Date: 05/30/25 08:20 Pre-Op Diagnosis: Neutropenic fever Post-Op Diagnosis: Neutropenic fever I identified the patient and participated in the time-out.: Yes Procedure Operation Date: 05/30/25 08:20 Actual Procedures p Mediport Removal(Not Applicable) - Jacob Depmsey DO Surgeon Jacob Dempsey DO Brick Setter Jennifer Talamantes PA-C Estimated Blood Loss 5 Findings See Below Intact mediport and catheter upon removal Specimens Catheter tip for culture Drains None Anesthesia Type General Complications none Disposition Disposition: Recovery Room Indications 80 yo female with bacteremia and need for port removal Description of Procedure The patient was brought to the OR and placed in the supine position. At this time she underwent MAC anesthesia without problem. Her right chest was prepped and draped in the usual sterile fashion. She was given appropriate pre- operative antibiotics. Timeout was called, procedure was verified as Mediport removal. Surgical, anesthesia and nursing teams agreed and the procedure was begun. Patient was then placed in Trendelenburg position. After injection of 0.25% Marcaine with epinephrine, a transverse incision directly through her old incision was made using a #15 blade scalpel. This was carried down directly to the port using electrocautery. At this time the catheter was delivered out of the incision. The sutures on the mediport itself were then cut and the entire mediport/catheter complex removed and passed off as specimen. The venotomy was suture ligated using 3-0 Vicryl. At this time the incision was irrigated until clear. Hemostasis was achieved using electrocautery. Hemostasis was complete. At this time the capsule was closed using 3-0 Vicryl. Deep dermal layer of skin was closed using 3-0 Vicryl and the skin was closed using 4-0 Monocryl. Sterile dressing was applied. All needle and sponge counts were correct x 2. The patient was then awakened from anesthesia and transported to PACU in stable condition. The physician assistant grocery was present and scrubbed for the entire procedure. She was essential in positioning, prepping and draping the patient, retraction and exposure and closure of the incision. I attest to the content of the Intraoperative Record and any orders documented therein. Any exceptions are noted below.
--- NOTE | 2025-05-30 13:49 | Anesthesiology Progress Note ---
Date of Service May 30, 2025 Anesthesia Post Procedure Vital Signs Vital Signs: Temp Pulse Pulse Resp BP BP Pulse Ox 05/30/25 12:29 36.8 C 66 20 152/61 H 96 05/30/25 09:30 36.7 C 61 18 129/55 L 05/30/25 08:44 36.7 C 61 16 103/64 94 05/30/25 07:44 36.3 C L 54 L 18 111/65 93 05/30/25 07:23 36.7 C 53 L 16 109/62 91 05/30/25 07:14 36.7 C 56 L 16 109/62 91 05/30/25 06:59 36.5 C 58 L 18 113/66 95 05/30/25 06:41 36.6 C 53 L 16 112/61 93 05/30/25 00:49 38.1 C H 80 16 136/69 92 05/30/25 00:30 37.9 C H 83 18 132/60 92 05/30/25 00:00 37.6 C H 77 18 151/63 H 90 05/29/25 23:45 37.4 C 77 16 146/73 H 93 05/29/25 23:30 37.4 C 67 143/58 H 96 05/29/25 20:35 36.9 C 66 16 162/69 H 94 05/29/25 20:10 05/29/25 18:25 36.3 C L 62 18 136/66 94 05/29/25 18:22 36.3 C L 62 18 136/66 94 05/29/25 17:52 36.7 C 61 18 149/66 H 96 05/29/25 17:37 36.9 C 61 18 153/63 H 96 05/29/25 17:18 37.4 C 60 16 149/63 H 97 05/29/25 14:32 36.7 C 64 15 125/60 93 O2 Del Method O2 Flow Rate 05/30/25 12:29 Room Air 05/30/25 09:30 05/30/25 08:44 05/30/25 07:44 05/30/25 07:23 Room Air 05/30/25 07:14 05/30/25 06:59 05/30/25 06:41 05/30/25 00:49 2 05/30/25 00:30 2 05/30/25 00:00 05/29/25 23:45 05/29/25 23:30 05/29/25 20:35 Room Air 05/29/25 20:10 Room Air 05/29/25 18:25 05/29/25 18:22 05/29/25 17:52 05/29/25 17:37 05/29/25 17:18 05/29/25 14:32 Room Air Transfer of Care Handoff Completed per policy Notes Mental Status: alert / awake / arousable and participated in evaluation Patient Amnestic to Procedure: Yes Nausea / Vomiting: adequately controlled Pain: adequately controlled Airway Patency, RR, SpO2: stable & adequate BP & HR: stable & adequate Hydration State: stable & adequate Anesthetic Complications: no major complications apparent and Pt Satisfied with anesthetic care
[2025-05-30] MEDS: POTASSIUM CHLORIDE CRTAB 20 MEQ TABCR PO STA (16:06)
--- NOTE | 2025-05-30 16:29 | Hospitalist Progress Note ---
Date of Service May 30, 2025 Assessment & Plan (1) Neutropenic fever: (2) Pancytopenia: (3) Acute myeloid leukemia: (4) Chronic diastolic heart failure: (5) Atrial fibrillation: (6) History of mitral valve repair: (7) Restless leg syndrome: (8) Hypothyroidism: Plan 80 year old female with PMH significant for hypothyroidism, dyslipidemia, hypertension, atrial fibrillation, nonobstructive CAD, chronic diastolic CHF, vitamin B12 deficiency, CKD IIIa, RLS, history of mitral valve prolapse s/p MVR (2022), acute myeloid leukemia, myelodysplastic syndrome, and pancytopenia who presents to the ED on 05/23/2025 as a referral from the office of Dr. Barnett with [facility]. Patient was seen in the ED on 05/22/25 for weakness, cough, congestion, and hallucinations. Symptoms improved after IV fluid administration and patient was discharged with plan for close follow up with Dr. Barnett. At her appointment, patient was febrile to 38.5 with O2 sat of 82% on room air and BP 95/61 and was therefore referred to the ED for evaluation. Sepsis Neutropenic fever Pancytopenia Patient presenting from office of Dr. Barnett with fever 38.5, O2 sat 82% on room air, BP 95/61 In the ED, patient was afebrile, O2 sat 93% on room air, normotensive initially Labs revealed pancytopenia with WBC 2.32, RBC 3.44, Plt 25 Biofire negative, CXR negative, UA unremarkable, negative lactate and procalcitonin Blood culture from 05/23/25 growing Pantoea septica and staph epidermidis ID recs noted Last fever was on 05/24/25 at 38.5 Currently IV cefepime and Vancomycin Repeat Blood cultures from 05/25/25 negative so far On 05/29/25, I had multidisciplinary conversations with ID and patient's international accountant Dr Barnett. Dr Barnett is ok with port removal ID recommended port removal and then oral linezolid 600mg BID and levaquin 750mg daily till 06/04/25, then afterwards change prophylaxis cefpodoxime to levaquin 500mg daily for better coverage Patient had port removed today Neutropenic precautions S/p 1 PRBC on 05/24/25. Hb 8.1 today. Will monitor Hypokalemia K low today likely due to resuming SAFETY ADVISOR torsemide and getting IV lasix after multiple platelet transfusion overnight to get Platelet to goal for procedure Getting repleted Will monitor K and replete as appropriate Hypotension Hypotension resolved with IVF BP now elevated Monitor AML MDS Following with Dr. Barnett of [facility] Last treatment in November 2024 Planned azacitidine for 3 days every 28 days but unable to continue due to significant neutropenia and thrombocytopenia On suppressive therapy including acyclovir, cefpodoxime (now stopped; to change to levaquin as above), posaconazole Chronic diastolic CHF Follows with [facility] Patient appears euvolemic TTE in January 2025 revealed EF 55-59%, severely enlarged LA, mod aortic valve sclerosis, mild aortic valve regurg, mod MR, mod to severe TR, mod pulm HTN Resume SAFETY ADVISOR torsemide (and KCl) and spironolactone Monitor I&Os and daily weights Atrial fibrillation Developed post op after MVR Not on anticoagulation due to anemia Continue metoprolol CKD Creat at baseline ~1.0 Avoid nephrotoxic agents as able Monitor renal function Hypothyroidism Continue levothyroxine RLS Continue ropinirole DVT Prophylaxis: TEDs/SCDs due to anemia Code Status: FULL CODE Updated son over the phone I spent a total of 50 minutes coordinating, documenting and providing care for this patient excluding time spent in performance of separately billed services Admission and Anticipated Discharge Date Admission Date: May 24, 2025 Subjective Patient seen and examined No complaints today Physical Exam Constitutional: + well hydrated; no acute distress Eyes: PERRL, conjunctivae normal, anicteric sclerae ENMT: external ear and nose normal, oropharynx normal Respiratory: normal respiratory effort, lungs clear to auscultation Cardiovascular: Rate/Rhythm: regular rate and regular rhythm Gastrointestinal (Abdomen): normal bowel sounds, soft, nontender, no hepatosplenomegaly Musculoskeletal: Trace pedal edema Neurologic: PERRL, EOMI, accommodation nl, no face palsy, no dysarthria Psychiatric: A+Ox3, euthymic affect Results & Data Results & Data Vital Signs (Past 12 Hours) Vital Signs Temp Pulse Pulse Pulse Resp BP BP 05/30/25 15:18 36.7 C 54 L 16 113/51 L 05/30/25 14:45 36.7 C 61 16 05/30/25 14:15 36.5 C 60 19 117/56 L 05/30/25 14:05 68 20 133/48 L 05/30/25 13:55 76 22 142/75 H 05/30/25 13:45 36.3 C L 72 26 H 126/56 L 05/30/25 12:29 36.8 C 66 20 152/61 H 05/30/25 09:30 36.7 C 61 18 129/55 L 05/30/25 08:44 36.7 C 61 16 103/64 05/30/25 07:44 36.3 C L 54 L 18 111/65 05/30/25 07:23 36.7 C 53 L 16 109/62 05/30/25 07:14 36.7 C 56 L 16 109/62 05/30/25 06:59 36.5 C 58 L 18 113/66 05/30/25 06:41 36.6 C 53 L 16 112/61 BP Pulse Ox O2 Del Method O2 Flow Rate 05/30/25 15:18 97 Nasal Cannula 2 05/30/25 14:45 117/58 L 98 Nasal Cannula 2 05/30/25 14:15 97 Nasal Cannula 2 05/30/25 14:05 91 Room Air 05/30/25 13:55 97 Oxymask 10 05/30/25 13:45 98 Oxymask 10 05/30/25 12:29 96 Room Air 05/30/25 09:30 05/30/25 08:44 94 05/30/25 07:44 93 05/30/25 07:23 91 Room Air 05/30/25 07:14 91 05/30/25 06:59 95 05/30/25 06:41 93 Laboratory Results Abnormal lab results 05/29/25 05/30/25 05/30/25 Range/Units 18:40 01:01 06:01 WBC 1.97 L 2.13 L 1.82 L (4.8-10.8) K/ul RBC 3.46 L 3.29 L 3.51 L (4.20-5.40) M/uL Hgb 8.7 L 8.1 L 8.6 L (12.0-16.0) g/dL Hct 27.6 L 25.5 L 27.5 L (37.0-47.0) % MCV 79.8 L 77.5 L 78.3 L (80.0-100.0) fL MCH 24.6 L 24.5 L (25.0-34.0) pg MCHC 31.5 L 31.8 L 31.3 L (32.0-36.0) g/dL RDW Std Deviation 83.3 H 79.7 H 79.9 H (36.4-46.3) fL RDW Coeff of Paulina 29.0 H 28.9 H 28.9 H (11.5-14.5) % Plt Count 33 L D 44 L 44 L (130-400) K/uL Neutrophils # (Manual) 0.32 L (1.40-6.50) K/uL Total Absolute Neuts 0.32 L* (1.4-6.5) K/uL Blast Cells # (Man) 0.28 H (0-0) K/uL Potassium 2.9 L (3.5-5.1) mmol/L BUN/Creatinine Ratio 21.1 H (10-20) Glucose 113 H (70-99(Fasting)) mg/dl Calcium 7.9 L (8.6-10.3) mg/dl 05/30/25 05/30/25 05/30/25 Range/Units 10:08 10:09 15:35 WBC 2.18 L (4.8-10.8) K/ul RBC 3.25 L (4.20-5.40) M/uL Hgb 8.1 L (12.0-16.0) g/dL Hct 25.4 L (37.0-47.0) % MCV 78.2 L (80.0-100.0) fL MCH 24.9 L (25.0-34.0) pg MCHC 31.9 L (32.0-36.0) g/dL RDW Std Deviation 81.0 H (36.4-46.3) fL RDW Coeff of Paulina 28.9 H (11.5-14.5) % Plt Count 48 L (130-400) K/uL Neutrophils # (Manual) (1.40-6.50) K/uL Total Absolute Neuts (1.4-6.5) K/uL Blast Cells # (Man) (0-0) K/uL Potassium 2.7 L 3.0 L (3.5-5.1) mmol/L BUN/Creatinine Ratio (10-20) Glucose (70-99(Fasting)) mg/dl Calcium (8.6-10.3) mg/dl
[2025-05-30 21:27] LABS: Potassium 4.1 mmol/L (3.5-5.1)
--- NOTE | 2025-05-30 23:54 | Communication Note ---
Date of Service: May 30, 2025 Patient noted to be more twitchy than usual as per RN. Patient denies headache symptoms. BSG 130s. Ionized calcium 1.08 PPE Oriented Episodic upper extremity jerking motions AP Episodic jerks/twitching secondary to hypocalcemia ? Cefepime neurotoxicity contributory (ongoing cefepime Rx for Pantoea bacteremia 1 bottle) Rule out hepatic encephalopathy given asterixis like involuntary jerks Replace calcium Ceftriaxone in place of cefepime for now Check ammonia level
[2025-05-31 00:21] LABS: Magnesium 1.8 mg/dl (1.7-2.4)
[2025-05-31] MEDS: CALCIUM GLUCONATE 1,000 MG/60 ML BAG IV STA (01:12)
[2025-05-31 06:51] LABS: Anion Gap 8.0 (3-11); Blood Urea Nitrogen 27.0 mg/dl (6-23); Calcium 8.1 mg/dl (8.6-10.3); Carbon Dioxide 26.0 mmol/L (21-32); Chloride 104.0 mmol/L (98-107); Creatinine Clr Calc Pharmacy 38.9 ml/min; Glucose 118.0 mg/dl (70-99(Fasting)); Magnesium 1.9 mg/dl (1.7-2.4); Potassium 4.0 mmol/L (3.5-5.1); Sodium 138.0 mmol/L (136-145)
[2025-05-31 07:16] LABS: Hematocrit (blood only) 24.9 % (37.0-47.0); Hemoglobin 7.9 g/dL (12.0-16.0); Mean Corpuscular Hemoglobin 25.0 pg (25.0-34.0); Mean Corpuscular Volume 78.8 fL (80.0-100.0); Platelet Count 31 K/uL (130-400); RDW Standard Deviation 80.6 fL (36.4-46.3); Red Blood Count 3.16 M/uL (4.20-5.40); White Blood Count 1.58 K/ul (4.8-10.8)
--- NOTE | 2025-05-31 07:55 | Surgery Progress Note ---
Date of Service May 31, 2025 Assessment & Plan (1) Staphylococcus epidermidis bacteremia: Plan: POD#1 mediport removal for + bacteremia Incision is c/d/i with skin glue. no signs of infection remains on abx for bacteremia treatment otherwise may f/u with us or her original surgeon for replacement of mediport once completed full tx of bacteremia in a couple wks if new port is requested by heme/onc we will sign off, she may f/u in the office for wound check in 2 weeks Admission and Anticipated Discharge Date Admission Date: May 24, 2025 Subjective Patient without complaints regarding mediport removal site. thinks it's healing well Physical Exam Physical Exam: awake, no distress Skin: right chest incision c/d/i with skin glue. no infection Results & Data Vital Signs (Past 12 Hours) Vital Signs Temp Pulse Resp BP Pulse Ox O2 Del Method O2 Flow Rate 05/31/25 07:27 98.1 F 78 18 133/66 91 Nasal Cannula 2 05/30/25 23:30 95 Nasal Cannula 2 05/30/25 21:28 Nasal Cannula 2 05/30/25 21:27 95 Nasal Cannula 2 05/30/25 21:24 98.4 F 80 16 119/65 92 Room Air 2 PG Care Time/CCT Total # of Minutes Spent Total Time Spent with Patient: Total time spent is greater than 50% in coordination of care (as documented) at patient's floor/unit and/or counseling patient: Coding Level of Care Code 37147 Post Operative Follow-Up Diagnoses Staphylococcus epidermidis bacteremia R78.81; B95.7
[2025-05-31] MEDS: cefTRIAXone SODIUM 2,000 MG/50 ML BAG IV SCH (08:21)
[2025-05-31] MEDS: POT PHOSPHATE MONOBASIC W/ SOD TAB PO STA (12:24)
--- NOTE | 2025-05-31 12:57 | Pharmacy Report ---
Pharmacy PK ABX Note - Date of Service May 31, 2025 - Assessment and Plan Assessment 05/31: Day #8 vancomycin * Random vancomycin level drawn today was 26.2mcg/mL which extrapolates to an AUC above the goal range. Will decrease the maintenance dose. * mediport was removed by surgery on 05/30 and cath tip was cultured (results are pending). 05/28: * Day # 5 vancomycin. Renal function stable. Repeat blood cultures from 05/25 are NGTD. Random level this AM 17.7mcg/mL. ID following. 05/26: Day # 3 vancomycin * Vancomycin level drawn this morning was 10.1mcg/mL which extrapolates to an AUC below the goal range. The maintenance dose of vancomycin has been increased. * 1 of 2 blood cultures from 05/23 finalized showing P. septica and S. epidermidis. Repeat blood cultures x 2 from 05/25 are pending. * ID consulted and recommended vancomycin and cefepime due to concern of IV port associated bloodstream infection 05/24: 80 year old F receiving empiric vancomycin and cefepime for treatment of possible bacteremia/febrile neutropenia w/ unclear source. Pertinent PMH includes AML, MDS, and CKD stage 3. Pertinent microbiologic data includes: negative MRSA Nasal Swab, blood culture 1 of 2 growing gram positive cocci in clusters (MRSE per Biofire) and gram- negative bacilli (Enterobacterales per Biofire). Cefepime appropriate for gram-negative organism based on Biofire results. Gram- positive organism likely represents contamination, but reasonable to continue empirically given fever today of 38.5 C. ID consulted. Plan Vancomycin * Vanco level today was 26.2mcg/mL which extrapolates to an AUC of 620mg/L.hr. * Decreaed maintenance dose: vancomycin 750 gm IV q12h * This is predicted to achieve an AUC/KYLEE in the goal range of 400-600mg/L.hr * Repeat level will be done in the next few days if vancomycin is continued. Pharmacy will continue to follow and will adjust dose/frequency as necessary. Thank you. Pharmacy has transitioned to AUC monitoring for vancomycin. AUC/KYLEE is the preferred PK/PD target and is associated with decreased risk of nephrotoxicity compared to traditional trough targets.
--- NOTE | 2025-05-31 12:58 | XRay Report ---
XR chest 1V portable CLINICAL HISTORY: hypoxia COMPARISON STUDY: 05/30/2025 FINDINGS: Stable cardiac valve repair. Stable cardiomegaly without pulmonary vascular congestion. The re is stranding consolidation at the left lung base with partial obscuration of the left hemidiaphrag m and blunting of the left costophrenic angle. No pneumothorax. IMPRESSION: Atelectasis versus pneumonia at the left lung base with possible trace left pleural effu radha. ACT 112: Negative or not required by law. Electronically signed by: Patrice Monzon M.D. 05/31/2025 12:56 PM
--- NOTE | 2025-05-31 14:26 | Hospitalist Progress Note ---
Date of Service May 31, 2025 Assessment & Plan (1) Neutropenic fever: (2) Pancytopenia: (3) Acute myeloid leukemia: (4) Chronic diastolic heart failure: (5) Atrial fibrillation: (6) History of mitral valve repair: (7) Restless leg syndrome: (8) Hypothyroidism: Plan 80 year old female with PMH significant for hypothyroidism, dyslipidemia, hypertension, atrial fibrillation, nonobstructive CAD, chronic diastolic CHF, vitamin B12 deficiency, CKD IIIa, RLS, history of mitral valve prolapse s/p MVR (2022), acute myeloid leukemia, myelodysplastic syndrome, and pancytopenia who presents to the ED on 05/23/2025 as a referral from the office of Dr. Barnett with [facility]. Patient was seen in the ED on 05/22/25 for weakness, cough, congestion, and hallucinations. Symptoms improved after IV fluid administration and patient was discharged with plan for close follow up with Dr. Barnett. At her appointment, patient was febrile to 38.5 with O2 sat of 82% on room air and BP 95/61 and was therefore referred to the ED for evaluation. #Sepsis #Neutropenic fever #Bacteremia -Patient presenting from office of Dr. Barnett with fever 38.5, O2 sat 82% on room air -Blood culture from 05/23/25 growing Pantoea septica and staph epidermidis -Bacteremia secondary to infected port s/p port removal on 05/30 Plan -DC cefepime and vanc today -Per ID switch to linezolid 600mg BID and levaquin 750mg daily till 06/04/25, then afterwards change prophylaxis cefpodoxime to levaquin 500mg daily for better coverage -PT/OT evaluated, recommended SNF placement. CM following. #Hypoxia -New hypoxia this admission -Has required 2L NC -Personally checked 05/31, sats drop to mid 80s on RA -Not on home O2 -CXR 05/31 showing atelectasis, doubtful PNA and already on broad spectrum abx Plan -Check BNP -Encourage incentive spirometry -Wean O2 as tolerated #Pancytopenia S/p 1 PRBC on 05/24/25. Follow counts F/u with hematology as OP #Hypokalemia #Hypophosphatemia Replace and follow #AML #MDS Following with Dr. Barnett of [facility] Last treatment in November 2024 Planned azacitidine for 3 days every 28 days but unable to continue due to significant neutropenia and thrombocytopenia On suppressive therapy including acyclovir, cefpodoxime (now stopped; to change to levaquin as above), posaconazole #Chronic diastolic CHF Follows with 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 This included personally reviewing all current laboratories and imaging studies, medical reconciliation, outpatient chart review and discussion with specialists Admission and Anticipated Discharge Date Admission Date: May 24, 2025 Subjective Feeling well this AM. seen twice. once this afternoon with son present. d/w DIL on phone as well Physical Exam Physical Exam: Vitals and labs reviewed General: elderly appearing in NAD HEENT: EOMI, PERRLA Neck: Supple Cardiac: RRR no rubs gallops or murmurs Lungs: faint bibasilar rales. no rhonchi wheez or distress Abd: S NT ND BS positive : Deffered MSK: Full ROM. No obvious deformities Ext: trace b/l LE Edema Skin: Warm, Dry Neuro: AOx3 No focal deficits. Psych: Normal Mood Results & Data Results & Data Vital Signs (Past 12 Hours) Vital Signs Temp Pulse Resp BP Pulse Ox O2 Del Method O2 Flow Rate 05/31/25 11:50 93 Nasal Cannula 2 05/31/25 11:50 86 L Room Air 05/31/25 08:00 Nasal Cannula 2 05/31/25 07:27 36.7 C 78 18 133/66 91 Nasal Cannula 2 Laboratory Results Abnormal lab results 05/30/25 05/30/25 05/31/25 Range/Units 15:35 23:55 00:25 WBC (4.8-10.8) K/ul RBC (4.20-5.40) M/uL Hgb (12.0-16.0) g/dL Hct (37.0-47.0) % MCV (80.0-100.0) fL MCHC (32.0-36.0) g/dL RDW Std Deviation (36.4-46.3) fL RDW Coeff of Paulina (11.5-14.5) % Plt Count (130-400) K/uL Potassium 3.0 L (3.5-5.1) mmol/L BUN (6-23) mg/dl BUN/Creatinine Ratio (10-20) Glucose (70-99(Fasting)) mg/dl POC Glucose 130 H (70-99) mg/dl Calcium (8.6-10.3) mg/dl Ionized Calcium 1.08 L (1.12-1.32) mmol/L Phosphorus (2.5-4.9) mg/dl Random Vancomycin (10-20) mcg/ml 05/31/25 05/31/25 Range/Units 06:08 11:55 WBC 1.58 L (4.8-10.8) K/ul RBC 3.16 L (4.20-5.40) M/uL Hgb 7.9 L (12.0-16.0) g/dL Hct 24.9 L (37.0-47.0) % MCV 78.8 L (80.0-100.0) fL MCHC 31.7 L (32.0-36.0) g/dL RDW Std Deviation 80.6 H (36.4-46.3) fL RDW Coeff of Paulina 28.9 H (11.5-14.5) % Plt Count 31 L (130-400) K/uL Potassium (3.5-5.1) mmol/L BUN 27 H (6-23) mg/dl BUN/Creatinine Ratio 27.6 H (10-20) Glucose 118 H (70-99(Fasting)) mg/dl POC Glucose (70-99) mg/dl Calcium 8.1 L (8.6-10.3) mg/dl Ionized Calcium (1.12-1.32) mmol/L Phosphorus 2.2 L (2.5-4.9) mg/dl Random Vancomycin 26.2 H* (10-20) mcg/ml
[2025-05-31] MEDS: FUROSEMIDE INJ 20 MG/2 ML VIAL IV ONE (16:47)
[2025-05-31] MEDS: LINEZOLID 600 MG TAB PO SCH (21:22)
[2025-06-01] MEDS ORDERED: VANCOMYCIN 750 MG in SODIUM CHLORIDE 0.9% 250 ML IV SCH (05:00)
[2025-06-01 07:05] LABS: Hematocrit (blood only) 25.0 % (37.0-47.0); Hemoglobin 8.0 g/dL (12.0-16.0); Mean Corpuscular Hemoglobin 24.9 pg (25.0-34.0); Mean Corpuscular Volume 77.9 fL (80.0-100.0); Platelet Count 27 K/uL (130-400); RDW Standard Deviation 81.9 fL (36.4-46.3); Red Blood Count 3.21 M/uL (4.20-5.40); White Blood Count 1.90 K/ul (4.8-10.8)
[2025-06-01 07:19] LABS: Anion Gap 8.0 (3-11); Blood Urea Nitrogen 30.0 mg/dl (6-23); Calcium 8.0 mg/dl (8.6-10.3); Carbon Dioxide 27.0 mmol/L (21-32); Chloride 103.0 mmol/L (98-107); Creatinine Clr Calc Pharmacy 37.0 ml/min; Glucose 106.0 mg/dl (70-99(Fasting)); Potassium 3.6 mmol/L (3.5-5.1); Sodium 138.0 mmol/L (136-145)
--- NOTE | 2025-06-01 10:06 | Hospitalist Progress Note ---
Date of Service June 01, 2025 Assessment & Plan (1) Neutropenic fever: (2) Pancytopenia: (3) Acute myeloid leukemia: (4) Chronic diastolic heart failure: (5) Atrial fibrillation: (6) History of mitral valve repair: (7) Restless leg syndrome: (8) Hypothyroidism: Plan 80 year old female with PMH significant for hypothyroidism, dyslipidemia, hypertension, atrial fibrillation, nonobstructive CAD, chronic diastolic CHF, vitamin B12 deficiency, CKD IIIa, RLS, history of mitral valve prolapse s/p MVR (2022), acute myeloid leukemia, myelodysplastic syndrome, and pancytopenia who presents to the ED on 05/23/2025 as a referral from the office of Dr. Barnett with [facility]. Patient was seen in the ED on 05/22/25 for weakness, cough, congestion, and hallucinations. Symptoms improved after IV fluid administration and patient was discharged with plan for close follow up with Dr. Barnett. At her appointment, patient was febrile to 38.5 with O2 sat of 82% on room air and BP 95/61 and was therefore referred to the ED for evaluation. #Sepsis #Neutropenic fever #Bacteremia -Patient presenting from office of Dr. Barnett with fever 38.5, O2 sat 82% on room air -Blood culture from 05/23/25 growing Pantoea septica and staph epidermidis -Bacteremia secondary to infected port s/p port removal on 05/30 Plan -Per ID switch to linezolid 600mg BID and levaquin 750mg daily till 06/04/25, then afterwards change prophylaxis cefpodoxime to levaquin 500mg daily for dar r coverage -PT/OT evaluated, recommended SNF placement but patient/family declined -Home with HC tomorrow as long as plts are at her baseline -Will need WW on discharge and home care #Hypoxia -New hypoxia this admission -Has required 2L NC -Personally checked 05/31, sats drop to mid 80s on RA -Not on home O2 -CXR 05/31 showing atelectasis, doubtful PNA and already on broad spectrum abx -BNP elevated -Suspect she was in mild acute on chronic HFpEF secondary to blood product infusions -S/p IV lasix on 04/30 Plan -On room air today -Hold further IV diuresis -Resume home torsemide -Encourage incentive spirometry #Pancytopenia -Chronic issue -No s/s acute blood loss -Plts downtrending, now down to 27k -Baseline is around 18k Plan -Transfuse Plts < 20 -Monitor closely for s/s bleeding -Follow CBC closely #Hypokalemia #Hypophosphatemia Replace and follow #AML #MDS Following with Dr. Barnett of [facility] Last treatment in November 2024 Planned azacitidine for 3 days every 28 days but unable to continue due to significant neutropenia and thrombocytopenia On suppressive therapy including acyclovir, cefpodoxime (now stopped; to change to levaquin as above), posaconazole #Chronic diastolic CHF -Was in acute on chronic HFpEF as above, volume status now improved Follows with [facility] TTE in January 2025 revealed EF 55-59%, severely enlarged LA, mod aortic valve sc lerosis, mild aortic valve regurg, mod MR, mod to severe TR, mod pulm HTN Resume [employer] torsemide (and KCl) and spironolactone Monitor I&Os and daily weights Paroxsymal Atrial fibrillation Developed post op after MVR Not on anticoagulation due to anemia Continue metoprolol CKD 3 Creat at baseline ~1.0 Avoid nephrotoxic agents as able Monitor renal function Hypothyroidism Continue levothyroxine RLS Continue ropinirole I spent a total of 54 minutes coordinating, documenting, and providing care for this patient excluding time spent in the performance of separately billed services. This included personally reviewing all current laboratories and imaging studies, medical reconciliation, outpatient chart review and discussion with specialists Admission and Anticipated Discharge Date Admission Date: May 24, 2025 Subjective Feeling much better today. Patient denies F/C, CP, palpitations, SOB, dyspnea, abd pain, N/V/D explained that she would have to stay another day and became understandably upset. D/w daughter in law on phone Physical Exam Physical Exam: Vitals and labs reviewed General: elderly appearing in NAD HEENT: EOMI, PERRLA Neck: Supple Cardiac: RRR no rubs gallops or murmurs Lungs: faint bibasilar rales. no rhonchi wheez or distress Abd: S NT ND BS positive : Deffered MSK: Full ROM. No obvious deformities Ext: trace b/l LE Edema Skin: Warm, Dry Neuro: AOx3 No focal deficits. Psych: Normal Mood Results & Data Results & Data Vital Signs (Past 12 Hours) Vital Signs Temp Pulse Resp BP Pulse Ox O2 Del Method O2 Flow Rate 06/01/25 07:06 36.4 C L 62 18 122/65 96 Room Air 06/01/25 05:30 95 Room Air 05/31/25 23:13 36.4 C L 59 L 16 113/63 95 Oxymask 2 Laboratory Results Abnormal lab results 05/31/25 05/31/25 06/01/25 Range/Units 11:55 14:22 06:27 WBC 1.90 L (4.8-10.8) K/ul RBC 3.21 L (4.20-5.40) M/uL Hgb 8.0 L (12.0-16.0) g/dL Hct 25.0 L (37.0-47.0) % MCV 77.9 L (80.0-100.0) fL MCH 24.9 L (25.0-34.0) pg RDW Std Deviation 81.9 H (36.4-46.3) fL RDW Coeff of Paulina 29.0 H (11.5-14.5) % Plt Count 27 L* (130-400) K/uL BUN 30 H (6-23) mg/dl BUN/Creatinine Ratio 29.1 H (10-20) Glucose 106 H (70-99(Fasting)) mg/dl Calcium 8.0 L (8.6-10.3) mg/dl B-Natriuretic Peptide 1523 H (0-100) pg/ml Random Vancomycin 26.2 H* (10-20) mcg/ml
[2025-06-02 07:23] VITALS: BP 126/73; PULSE 61; RESP 15; TEMP 97.9; O2SAT 97
[2025-06-02 08:01] LABS: Anion Gap 7.0 (3-11); Blood Urea Nitrogen 25.0 mg/dl (6-23); Calcium 8.2 mg/dl (8.6-10.3); Carbon Dioxide 28.0 mmol/L (21-32); Chloride 104.0 mmol/L (98-107); Creatinine Clr Calc Pharmacy 38.9 ml/min; Glucose 91.0 mg/dl (70-99(Fasting)); Potassium 4.1 mmol/L (3.5-5.1); Sodium 139.0 mmol/L (136-145)
[2025-06-02 08:04] LABS: Hematocrit (blood only) 27.6 % (37.0-47.0); Hemoglobin 8.6 g/dL (12.0-16.0); Mean Corpuscular Hemoglobin 24.6 pg (25.0-34.0); Mean Corpuscular Volume 78.9 fL (80.0-100.0); Platelet Count 21 K/uL (130-400); RDW Standard Deviation 81.4 fL (36.4-46.3); Red Blood Count 3.50 M/uL (4.20-5.40); White Blood Count 1.67 K/ul (4.8-10.8)
[2025-06-02] MEDS: TORSEMIDE 10 MG TAB PO SCH (10:04)
--- NOTE | 2025-06-02 10:07 | Discharge Summary ---
Discharge Summary Date of Service June 02, 2025 Principal Dx & Hospital Course #1 = Principal Diagnosis (1) Neutropenic fever: (2) Pancytopenia: (3) Acute myeloid leukemia: (4) Chronic diastolic heart failure: (5) Atrial fibrillation: (6) History of mitral valve repair: (7) Restless leg syndrome: (8) Hypothyroidism: Plan 80 year old female with PMH significant for hypothyroidism, dyslipidemia, hypertension, atrial fibrillation, nonobstructive CAD, chronic diastolic CHF, vitamin B12 deficiency, CKD IIIa, RLS, history of mitral valve prolapse s/p MVR (2022), acute myeloid leukemia, myelodysplastic syndrome, and pancytopenia who presents to the ED on 05/23/2025 as a referral from the office of Dr. Barnett with [facility]. Patient was seen in the ED on 05/22/25 for weakness, cough, congestion, and hallucinations. Symptoms improved after IV fluid administration and patient was discharged with plan for close follow up with Dr. Barnett. At her appointment, patient was febrile to 38.5 with O2 sat of 82% on room air and BP 95/61 and was therefore referred to the ED for evaluation. She was diagnosed with sepsis and started on broad spectrum abx. Blood cultures 06/02 growing Pantoea septica and staph epidermidis. ID was consulted. Bacteremia secondary to infected port s/p port removal on 05/30. She was converted to linezolid 600mg BID and levaquin 750mg daily till 06/04/25, then afterwards change prophylaxis cefpodoxime to levaquin 500mg daily. Her course was also c/b her chronic pancytopenia. She received PRBCs and Plts. D/w her lvn, Dr Barnett today, her baseline plt count is around 18k and hematology ok for discharge home. She will f/u with hematology as OP. She also had acute on chronic HFpEF secondary to blood product infusions. Resolved with IV lasix. She feels well today and wishes to go home. Patient denies F/C, CP, palpitations, SOB, dyspnea, abd pain, N/V/D. She adamantly refuses SNF placement. D/w family who agree with home with home care. Vitals are stable on day of discharge. #Sepsis #Neutropenic fever #Bacteremia -Patient presenting from office of Dr. Barnett with fever 38.5, O2 sat 82% on room air -Blood culture from 05/23/25 growing Pantoea septica and staph epidermidis -Bacteremia secondary to infected port s/p port removal on 05/30 Plan -Per ID switch to linezolid 600mg BID and levaquin 750mg daily till 06/04/25, then afterwards change prophylaxis cefpodoxime to levaquin 500mg daily for better coverage -PT/OT evaluated, recommended SNF placement but patient/family declined #Hypoxia -New hypoxia this admission -Has required 2L NC -Personally checked 05/31, sats drop to mid 80s on RA -Not on home O2 -CXR 05/31 showing atelectasis, doubtful PNA and already on broad spectrum abx -BNP elevated -Suspect she was in mild acute on chronic HFpEF secondary to blood product infusions -S/p IV lasix on 04/30 Plan -On room air today -Hold further IV diuresis -Resume home torsemide -Encourage incentive spirometry #Pancytopenia -Chronic issue -No s/s acute blood loss -Plts downtrending, now down to 27k -Baseline is around 18k Plan -Transfuse Plts < 20 -Monitor closely for s/s bleeding -Follow CBC closely #Hypokalemia #Hypophosphatemia Replace and follow #AML #MDS Following with Dr. Barnett of [facility] Last treatment in November 2024 Planned azacitidine for 3 days every 28 days but unable to continue due to significant neutropenia and thrombocytopenia On suppressive therapy including acyclovir, cefpodoxime (now stopped; to change to levaquin as above), posaconazole #Chronic diastolic CHF -Was in acute on chronic HFpEF as above, volume status now improved Follows with [facility] TTE in January 2025 revealed EF 55-59%, severely enlarged LA, mod aortic valve sclerosis, mild aortic valve regurg, mod MR, mod to severe TR, mod pulm HTN Resume [employer]PER[employer] torsemide (and KCl) and spironolactone Monitor I&Os and daily weights Paroxsymal Atrial fibrillation Developed post op after MVR Not on anticoagulation due to anemia Continue metoprolol CKD 3 Creat at baseline ~1.0 Avoid nephrotoxic agents as able Monitor renal function Hypothyroidism Continue levothyroxine RLS Continue ropinirole I spent a total of 45 minutes coordinating, documenting, and providing care for this patient excluding time spent in the performance of separately billed services. This included personally reviewing all current laboratories and imaging studies, medical reconciliation, outpatient chart review and discussion with specialists Notes For Next Care Provider Medication Changes From Visit linezolid 600mg BID and levaquin 750mg daily till 06/04/25, then afterwards change prophylaxis cefpodoxime to levaquin 500mg daily Admission HPI Per Admitting Provider 80 year old female with PMH significant for hypothyroidism, dyslipidemia, hypertension, atrial fibrillation, nonobstructive CAD, chronic diastolic CHF, vitamin B12 deficiency, CKD IIIa, RLS, history of mitral valve prolapse s/p MVR (2022), acute myeloid leukemia, myelodysplastic syndrome, and pancytopenia who presents to the ED on 05/23/2025 as a referral from the office of Dr. Barnett with [facility]. Patient was seen in the ED yesterday for weakness, cough, congestion, and hallucinations. Symptoms improved after IV fluid administration and patient was discharged with plan for close follow up with Dr. Barnett today. At her appointment today, patient was febrile to 38.5 with O2 sat of 82% on room air and BP 95/61 and was therefore referred to the ED for evaluation. History obtained from patient and her son. Her son reports that she has been "off balance" since yesterday and when he met her at her appointment today, he immediately felt she needed a wheelchair and was not safe to walk. Patient did not have any falls. Patient reports she feels weak and has a persistent dry cough that has been present for weeks. Otherwise no acute complaints. Denies dizziness, chest pain, SOB, abdominal pain, N/V/D, dysuria, hematuria, hematochezia. Discharge Exam Vitals and labs reviewed General: elderly appearing in NAD HEENT: EOMI, PERRLA Neck: Supple Cardiac: RRR no rubs gallops or murmurs Lungs: CTA no distress Abd: S NT ND BS positive : no vincent MSK: Full ROM. No obvious deformities Ext: trace b/l LE Edema Skin: Warm, Dry Neuro: AOx3 No focal deficits. Psych: Normal Mood Updated Medication List Medication Instructions Recorded Confirmed Type levothyroxine 100 mcg tablet 75 mcg PO QAM 10/10/22 05/23/25 History acyclovir 400 mg tablet 400 mg PO BID 04/03/23 05/23/25 History cefpodoxime 200 mg tablet 200 mg PO BID 04/03/23 05/23/25 History lidocaine-prilocaine 2.5 %-2.5 % 2.5 applic topical DIRECTED PRN 04/03/23 05/23/25 History topical cream Itching metoprolol succinate 25 mg 25 mg PO BID 04/03/23 05/23/25 History tablet,extended release 24 hr ondansetron 4 mg disintegrating 4 mg PO Q6H PRN Nausea 04/03/23 05/23/25 History tablet posaconazole 100 mg tablet,delayed 300 mg PO 1XD 04/03/23 05/23/25 History release potassium chloride 20 mEq 20 meq PO BID 06/19/23 05/23/25 History tablet,extended release spironolactone 25 mg tablet 25 mg PO DAILY 06/19/23 05/23/25 History prochlorperazine maleate 10 mg 10 mg PO Q6H PRN Nausea 05/17/24 05/23/25 History tablet (Compazine) ropinirole 3 mg tablet 3 mg PO HS 05/17/24 05/23/25 History torsemide 10 mg tablet 10 mg PO MOWEFR 05/17/24 05/23/25 History levofloxacin 500 mg tablet See Rx Instructions .Route 05/30/25 Rx .COMPLEX #90 tabs linezolid 600 mg tablet 600 mg PO BID 5 days #10 tabs 05/30/25 Rx Hospital Stay Data Consultations 05/23/25 10:16 ED Decision to Admit Stat 05/23/25 13:55 Consult Infectious Diseases Routine 05/29/25 15:56 Consult General Surgery Routine Procedures Performed Operation Date: 05/30/25 08:20 Actual Procedures p Mediport Removal(Not Applicable) - Jacob Dempsey, DO Pending Results Patient Have Any Pending Studies at Discharge: No Discharge Instructions Given to Patient (Per Discharging Provider) Mrs Hill You were hospitalized and managed for the above listed diagnoses. You also had your port removed. You are being discharged on antibiotics (Linezolid 600mg twice a day and Levofloxacin 750mg daily) till 06/04/25 Stop taking cefpodoxime. From 06/05/25, start taking Levofloxacin 500mg daily for prophylaxis in place of the cefpodoxime. Please continue your other medications and follow up with your Primary Doctor. It was a pleasure taking care of you Total Time Total Time Spent Total Time Spent (In Minutes): 45
== END 2025-06-02 12:00 | disposition home health service (06) | DRG 314 ==
LOC: ED 09:05 → 3W 09:05 → SUATTDRO 11:18 → 3W 13:30 → SUATTDRO 05-24 12:28